=== PATIENT | male | born 1950 | race Caucasian/White ===

== ENCOUNTER → 2017-08-04 | Outpatient (CLI) | payer MEDICARE, OTHER ==
[~2017-08-04] MED LIST: ADENOSINE 72 MG in GIVE UN-DILUTED 0 ML IV ONE; ADENOSINE 90 MG/30 ML INJ IV ONE; ASPI81CH43 PO; CAR3125T PO; Captopril PO; FAM20T PO; METF500T PO; SIMV20TA90 PO; SPIR25TA88 PO; TICA90TA PO
[2017-08-04 16:54] LABS: Basophils # (auto) 0 uL; Basophils % (auto) 0.9 % (0.0-2.0); Eosinophils # (auto) 0.1 uL; Eosinophils % (auto) 1.2 % (0.0-7.0); Hematocrit 43.4 % (41.0-53.0); Hemoglobin 14.4 g/dL (13.5-17.5); Lymphocytes # (auto) 0.8 uL; Lymphocytes % (auto) 15.1 % (10.0-50.0); Mean Corpuscular Hemoglobin 30.3 pg (28.0-32.0); Mean Corpuscular Hgb Conc. 33.3 g/dL (32.0-36.0); Monocytes # (auto) 0.4 uL; Monocytes % (auto) 6.9 % (0.0-12.0); Neutrophils # (auto) 3.8 uL; Neutrophils % (auto) 75.9 % (37.0-80.0); Nucleated Red Blood Cells % 0.7 %; Platelet Count (auto) 196 10^3/uL (140-450); Red Blood Cells 4.77 10^6/uL (4.5-5.90); Red Cell Distribution Width 14.4 % (11.8-14.3)
[2017-08-04 17:07] LABS: Urine Blood Negative /uL (Negative); Urine Specific Gravity 1.019 (1.001-1.035)
[2017-08-04 17:13] LABS: Albumin 3.7 g/dL (3.4-5.0); BUN/Creatinine Ratio 13.4; Bilirubin, Total 0.6 mg/dL (0.2-1.0); Potassium 4.1 mmol/L (3.5-5.1); Total Protein 7.4 g/dL (6.4-8.2)
[2017-08-04 17:15] LABS: Free T4 (Free Thyroxine) 1.23 ng/dL (0.89-1.76); Prostate Specific Antigen 1.62 ng/mL (0.0-4.0)
== END | disposition home or self-care (01) ==
LOC: Rad HDHVI 08:42
PROVIDERS: ATTEND Internal Medicine Cardiovascular Disease
DX: I25.5 Ischemic cardiomyopathy (principal); I11.0 Hypertensive heart disease with heart failure; I50.23 Acute on chronic systolic (congestive) heart failure; E78.00 Pure hypercholesterolemia, unspecified; D64.9 Anemia, unspecified; E03.9 Hypothyroidism, unspecified; E55.9 Vitamin D deficiency, unspecified; R53.81 Other malaise; R97.20 Elevated prostate specific antigen [PSA]; D51.9 Vitamin B12 deficiency anemia, unspecified; N39.0 Urinary tract infection, site not specified; I34.0 Nonrheumatic mitral (valve) insufficiency; E11.40 Type 2 diabetes mellitus with diabetic neuropathy, unspecified
CPT/HCPCS: 36415; 78452; 80053; 80061; 81003; 82306; 82607; 83036; 84153; 84402; 84403; 84439; 84443; 85025; 93005; 93306; 96374; 96375; A9500; J0153

== ENCOUNTER 2017-08-16 07:45 | Emergency (ER) | payer OTHER ==
[~2017-08-16] VITALS: Ht 182.9 cm; Wt 89.8 kg
[~2017-08-16 07:45] MED LIST changes: -ADENOSINE 72 MG in GIVE UN-DILUTED 0 ML IV ONE; -ADENOSINE 90 MG/30 ML INJ IV ONE
[2017-08-16 08:39] LABS: Basophils # (auto) 0 uL; Basophils % (auto) 0.6 % (0.0-2.0); Eosinophils # (auto) 0 uL; Eosinophils % (auto) 0.8 % (0.0-7.0); Hematocrit 41.5 % (41.0-53.0); Hemoglobin 13.6 g/dL (13.5-17.5); Lymphocytes # (auto) 0.5 uL; Lymphocytes % (auto) 8.2 % (10.0-50.0); Mean Corpuscular Hemoglobin 30.1 pg (28.0-32.0); Mean Corpuscular Hgb Conc. 32.7 g/dL (32.0-36.0); Mean Corpuscular Volume 91.8 fL (80.0-100.0); Monocytes # (auto) 0.4 uL; Neutrophils # (auto) 4.7 uL; Neutrophils % (auto) 83.4 % (37.0-80.0); Platelet Count (auto) 177 10^3/uL (140-450); Red Blood Cells 4.52 10^6/uL (4.5-5.90); Red Cell Distribution Width 13.9 % (11.8-14.3); White Blood Cell 5.7 10^3/uL (4.4-10.8)
[2017-08-16 08:59] LABS: Albumin 3.5 g/dL (3.4-5.0); BUN/Creatinine Ratio 10.3; Calcium 8.3 mg/dL (8.5-10.1); Potassium 4.7 mmol/L (3.5-5.1)
[2017-08-16 09:04] LABS: Bilirubin, Total 0.7 mg/dL (0.2-1.0); Total Protein 6.9 g/dL (6.4-8.2)
[2017-08-16 11:16] VITALS: BP 134/87
== END 2017-08-16 12:21 | disposition home or self-care (01) ==
LOC: ER 07:45
DX: E11.9 Type 2 diabetes mellitus without complications (principal); I10 Essential (primary) hypertension; K21.9 Gastro-esophageal reflux disease without esophagitis; E78.5 Hyperlipidemia, unspecified; Z95.810 Presence of automatic (implantable) cardiac defibrillator
CPT/HCPCS: 36415; 71046; 80053; 84484; 85025; 93005

== ENCOUNTER → 2019-10-29 | Outpatient (CLI) | payer OTHER | END | disposition home or self-care (01) | LOC: LAB 11:46 | PROVIDERS: ATTEND Internal Medicine Cardiovascular Disease | DX: E29.1 Testicular hypofunction (principal); R53.83 Other fatigue | CPT/HCPCS: 36415; 84403 ==

== ENCOUNTER → 2019-12-01 | Outpatient (CLI) | payer OTHER ==
[~2019-12-01] MED LIST changes: -FAM20T PO; +FAMO20TA10 PO
== END | disposition home or self-care (01) ==
LOC: Rad HDHVI 13:59
PROVIDERS: ATTEND Internal Medicine Cardiovascular Disease
DX: E11.319 Type 2 diabetes mellitus with unspecified diabetic retinopathy without macular edema (principal); I25.10 Atherosclerotic heart disease of native coronary artery without angina pectoris; Z95.0 Presence of cardiac pacemaker
CPT/HCPCS: 93306

== ENCOUNTER → 2019-12-16 | Outpatient (CLI) | payer OTHER ==
[~2019-12-16] VITALS: Ht 182.9 cm; Wt 83.5 kg
[~2019-12-16] MED LIST changes: +ADENOSINE 70 MG in GIVE UN-DILUTED 0 ML IV ONE; +ADENOSINE 90 MG/30 ML INJ IV ONE; +FAM20T PO; -FAMO20TA10 PO
== END | disposition home or self-care (01) ==
LOC: Rad HDHVI 09:01
PROVIDERS: ATTEND Internal Medicine Cardiovascular Disease
DX: I10 Essential (primary) hypertension (principal); E11.9 Type 2 diabetes mellitus without complications; Z95.0 Presence of cardiac pacemaker; Z95.1 Presence of aortocoronary bypass graft
CPT/HCPCS: 78452; 93005; 96374; 96375; A9500; J0153

== ENCOUNTER 2021-07-27 09:53 | Inpatient (IN) | payer OTHER ==
[~2021-07-27] VITALS: Ht 182.9 cm; Wt 85.8 kg
[~2021-07-27 09:53] MED LIST changes: -ADENOSINE 70 MG in GIVE UN-DILUTED 0 ML IV ONE; -ADENOSINE 90 MG/30 ML INJ IV ONE; -FAM20T PO; +FAMO20TA10 PO; +SIMV20TA2 PO; -SIMV20TA90 PO; +SPIR25TA PO; -SPIR25TA88 PO
[2021-07-27 10:35] LABS: Basophils # (auto) 0 10 ^3/uL (0-0.2); Eosinophils # (auto) 0 10 ^3/uL (0-0.8); Hematocrit 35.3 % (41.0-53.0); Hemoglobin 11.5 g/dL (13.5-17.5); Lymphocytes # (auto) 0.3 10 ^3/uL (0.4-5.4); Lymphocytes % (auto) 1.6 % (10.0-50.0); Mean Corpuscular Hemoglobin 28.5 pg (28.0-32.0); Mean Corpuscular Hgb Conc. 32.4 g/dL (32.0-36.0); Mean Corpuscular Volume 87.9 fL (80.0-100.0); Monocytes # (auto) 1.9 10 ^3/uL (0-1.3); Monocytes % (auto) 9.6 % (0.0-12.0); Neutrophils # (auto) 18.1 10 ^3/uL (1.6-8.6); Neutrophils % (auto) 88.8 % (37.0-80.0); Red Blood Cells 4.02 10^6/uL (4.5-5.90); Red Cell Distribution Width 14.2 % (11.8-14.3); White Blood Cell 20.4 10^3/uL (4.4-10.8)
[2021-07-27 10:47] LABS: Albumin 2.5 g/dL (3.4-5.0); Calcium 8.5 mg/dL (8.5-10.1); Potassium 4.6 mmol/L (3.5-5.1)
[2021-07-27 10:49] LABS: Total Protein 7.4 g/dL (6.4-8.2)
[2021-07-27 11:06] LABS: Lactic Acid w/Reflex 2.2 mmol/L (0.4-2.0)
[2021-07-27] MEDS ORDERED: CLINDAMYCIN 600MG IV 50 ML IV ONE (13:45)
[2021-07-27] MEDS ORDERED: cefTRIAXone 1GM/50ML D5W 50 ML IV ONE (13:45)
[2021-07-27] MEDS ORDERED: SODIUM CHLORIDE 0.9% 1,000 ML IV ONE ×2 (13:45)
[2021-07-27] MEDS ORDERED: NITROGLYCERIN 0.4 MG SL TAB SL PRN (14:30)
[2021-07-27] MEDS ORDERED: MORPHINE SULFATE INJECTION 2 MG/ML SYRG IV PRN (14:30)
[2021-07-27] MEDS: SODIUM CHLORIDE 0.9% 1,000 ML IV SCH (17:07)
[2021-07-27 21:56] VITALS: BP 106/57
[2021-07-27 21:59] VITALS: BP 106/57
[2021-07-27] MEDS ORDERED: BRIM0.2S17 EACHEYE (22:16)
[2021-07-27] MEDS ORDERED: ASPI-543 PO (22:16)
[2021-07-27] MEDS ORDERED: CARV3.1240 PO (22:16)
[2021-07-27] MEDS ORDERED: DAPA1TAB4 PO (22:16)
[2021-07-27] MEDS ORDERED: METF-370 PO (22:16)
[2021-07-27] MEDS ORDERED: RAMI5CAP40 PO (22:16)
[2021-07-27] MEDS: ACETAMINOPHEN 325 MG TAB PO PRN (23:34)
[2021-07-28 05:09] VITALS: BP 108/51
[2021-07-28] MEDS: ACETAMINOPHEN 325 MG TAB PO PRN ×5 (05:11→18:28)
[2021-07-28 06:38] LABS: Basophils # (auto) 0 10 ^3/uL (0-0.2); Basophils % (auto) 0.2 % (0.0-2.0); Eosinophils # (auto) 0 10 ^3/uL (0-0.8); Hematocrit 30.7 % (41.0-53.0); Hemoglobin 10.2 g/dL (13.5-17.5); Lymphocytes # (auto) 0.2 10 ^3/uL (0.4-5.4); Lymphocytes % (auto) 1.5 % (10.0-50.0); Mean Corpuscular Hemoglobin 28.8 pg (28.0-32.0); Mean Corpuscular Hgb Conc. 33.1 g/dL (32.0-36.0); Mean Corpuscular Volume 86.8 fL (80.0-100.0); Monocytes # (auto) 1.5 10 ^3/uL (0-1.3); Monocytes % (auto) 9.1 % (0.0-12.0); Neutrophils # (auto) 14.8 10 ^3/uL (1.6-8.6); Neutrophils % (auto) 89.2 % (37.0-80.0); Red Blood Cells 3.54 10^6/uL (4.5-5.90); White Blood Cell 16.6 10^3/uL (4.4-10.8)
[2021-07-28 07:00] LABS: Potassium 4.2 mmol/L (3.5-5.1)
[2021-07-28 07:08] LABS: Albumin 1.9 g/dL (3.4-5.0); BUN/Creatinine Ratio 34.7; Bilirubin, Total 0.8 mg/dL (0.2-1.0); Total Protein 5.9 g/dL (6.4-8.2)
[2021-07-28] MEDS: SODIUM CHLORIDE 0.9% 1,000 ML IV SCH (08:03)
[2021-07-28 09:00] VITALS: BP 95/54
[2021-07-28] MEDS: ENOXAPARIN SOD 40 MG/0.4 ML SYRINGE SC SCH (09:23)
[2021-07-28 12:59] VITALS: BP 110/62
[2021-07-28] MEDS ORDERED: PIPERACILLIN-TAZOB 3.375GM 100 ML IV ONE (13:30)
[2021-07-28] MEDS ORDERED: VANCOMYCIN PER PHARMACY 0 MG IV SCH (13:30)
[2021-07-28] MEDS ORDERED: PIPERACILLIN-TAZOB 3.375GM 100 ML IV SCH ×2 (14:00→22:00)
[2021-07-28] MEDS ORDERED: VANCOMYCIN 1GM/250ML 250 ML IV ONE (14:30)
[2021-07-28 16:36] VITALS: BP 111/50
[2021-07-28] MEDS: PIPERACILLIN-TAZOB 3.375GM 100 ML IV SCH (18:09)
[2021-07-28] MEDS ORDERED: DEXTROSE (50%) 50ML SYRG IV PRN (20:15)
[2021-07-28] MEDS: ACCU-CHEK COMFORT CURVE STRIP VI SCH (22:24)
[2021-07-28] MEDS: InsuLIN REG 1unit/0.01ml Soln (100units/ml) SC SCH (22:30)
[2021-07-29] MEDS: SODIUM CHLORIDE 0.9% 1,000 ML IV SCH ×2 (00:14→16:30)
[2021-07-29] MEDS: PIPERACILLIN-TAZOB 3.375GM 100 ML IV SCH ×3 (00:43→17:00)
[2021-07-29 04:00] VITALS: BP 96/66
[2021-07-29] MEDS: VANCOMYCIN 1GM/250ML 250 ML IV SCH ×2 (04:18→17:00)
[2021-07-29] MEDS: ACCU-CHEK COMFORT CURVE STRIP VI SCH ×4 (06:06→22:00)
[2021-07-29] MEDS: InsuLIN REG 1unit/0.01ml Soln (100units/ml) SC SCH ×4 (06:07→22:00)
[2021-07-29 09:00] VITALS: BP_SYST 95; BP_SYST 99; BP_DIAS 59; BP_DIAS 65
[2021-07-29] MEDS: ENOXAPARIN SOD 40 MG/0.4 ML SYRINGE SC SCH (09:57)
[2021-07-29] MEDS: DAKINS QUARTER STR 0.125% (NaHypochlorite) 473 ML TOPICAL SOL TOP SCH (09:58)
[2021-07-29 13:42] VITALS: BP 114/63
[2021-07-29 17:00] VITALS: BP 122/48
[2021-07-30] MEDS: PIPERACILLIN-TAZOB 3.375GM 100 ML IV SCH ×3 (01:04→17:00)
[2021-07-30] MEDS: VANCOMYCIN 1GM/250ML 250 ML IV SCH ×2 (05:57→20:20)
[2021-07-30 06:26] LABS: BUN/Creatinine Ratio 34.3; Calcium 7.8 mg/dL (8.5-10.1); Potassium 3.8 mmol/L (3.5-5.1)
[2021-07-30] MEDS: InsuLIN REG 1unit/0.01ml Soln (100units/ml) SC SCH ×3 (06:33→17:00)
[2021-07-30] MEDS: ACCU-CHEK COMFORT CURVE STRIP VI SCH ×3 (06:34→17:00)
[2021-07-30 09:00] VITALS: BP 105/58
[2021-07-30] MEDS: ENOXAPARIN SOD 40 MG/0.4 ML SYRINGE SC SCH (10:04)
[2021-07-30] MEDS: SODIUM CHLORIDE 0.9% 1,000 ML IV SCH (10:04)
[2021-07-30] MEDS: DAKINS QUARTER STR 0.125% (NaHypochlorite) 473 ML TOPICAL SOL TOP SCH (11:52)
[2021-07-30 18:08] VITALS: BP 115/56
[2021-07-30 22:00] VITALS: BP 105/61
[2021-07-31] MEDS: InsuLIN REG 1unit/0.01ml Soln (100units/ml) SC SCH ×6 (00:12→21:24)
[2021-07-31] MEDS: VANCOMYCIN 1GM/250ML 250 ML IV SCH ×2 (00:20→21:22)
[2021-07-31] MEDS: PIPERACILLIN-TAZOB 3.375GM 100 ML IV SCH ×3 (02:11→17:22)
[2021-07-31] MEDS: ACCU-CHEK COMFORT CURVE STRIP VI SCH ×5 (02:15→21:25)
[2021-07-31 05:24] LABS: Basophils # (auto) 0 10 ^3/uL (0-0.2); Basophils % (auto) 0.2 % (0.0-2.0); Eosinophils # (auto) 0 10 ^3/uL (0-0.8); Eosinophils % (auto) 0.3 % (0.0-7.0); Hemoglobin 10.3 g/dL (13.5-17.5); Lymphocytes # (auto) 0.4 10 ^3/uL (0.4-5.4); Lymphocytes % (auto) 3.1 % (10.0-50.0); Mean Corpuscular Hemoglobin 28.6 pg (28.0-32.0); Mean Corpuscular Hgb Conc. 33.1 g/dL (32.0-36.0); Mean Corpuscular Volume 86.5 fL (80.0-100.0); Monocytes # (auto) 1.1 10 ^3/uL (0-1.3); Monocytes % (auto) 8.4 % (0.0-12.0); Neutrophils # (auto) 11.1 10 ^3/uL (1.6-8.6); Nucleated Red Blood Cells % 0.1 %; Red Blood Cells 3.59 10^6/uL (4.5-5.90); Red Cell Distribution Width 13.9 % (11.8-14.3); White Blood Cell 12.7 10^3/uL (4.4-10.8)
[2021-07-31 05:36] LABS: INR 1.33 (0.9-1.15)
[2021-07-31 05:38] LABS: BUN/Creatinine Ratio 31.6; Calcium 8.1 mg/dL (8.5-10.1); Potassium 3.7 mmol/L (3.5-5.1)
[2021-07-31 06:00] VITALS: BP 102/59
[2021-07-31] MEDS ORDERED: POVIDONE IODINE 10 % TOPICAL OINT 30GM TOP ONE (07:53)
[2021-07-31 08:00] VITALS: BP 110/60
[2021-07-31] MEDS: DAKINS QUARTER STR 0.125% (NaHypochlorite) 473 ML TOPICAL SOL TOP SCH (10:00)
[2021-07-31] MEDS: ENOXAPARIN SOD 40 MG/0.4 ML SYRINGE SC SCH (10:00)
[2021-07-31] MEDS ORDERED: IODIXANOL 320MG/ML 100ML BTL IV ONE (11:35)
[2021-07-31] MEDS ORDERED: LIDOCAINE 2%HCL (LOCAL ANESTH.) INJ 20ML MDV ONE (11:35)
[2021-07-31] MEDS ORDERED: ANGIOMAX 250 MG VIAL IV ONE (11:52)
[2021-07-31] MEDS ORDERED: fentaNYL CITRATE 100 MCG/2 ML VL ONE (11:52)
[2021-07-31] MEDS ORDERED: SODIUM CHL 0.9% 0 ML ONE (11:53)
[2021-07-31] MEDS ORDERED: MIDAZOLAM HCL 2MG/2ML 2ml VIAL (1mg/ml) ONE (11:53)
[2021-07-31 12:00] VITALS: BP 98/88
[2021-07-31 16:00] VITALS: BP 100/55
[2021-07-31 22:00] VITALS: BP 115/58
[2021-08-01] MEDS: PIPERACILLIN-TAZOB 3.375GM 100 ML IV SCH ×3 (00:36→17:00)
[2021-08-01 05:00] VITALS: BP 146/74
[2021-08-01] MEDS: InsuLIN REG 1unit/0.01ml Soln (100units/ml) SC SCH ×4 (07:03→22:49)
[2021-08-01] MEDS: ACCU-CHEK COMFORT CURVE STRIP VI SCH ×4 (07:14→22:50)
[2021-08-01] MEDS ORDERED: ROPIVACAINE 0.5% (5MG/ML) 20ML AMPULE IJ ONE (08:13)
[2021-08-01] MEDS ORDERED: ceFAZolin 1GM VL ONE (08:13)
[2021-08-01] MEDS ORDERED: ceFAZolin 1GM/50ML 100 ML IV ONE (08:19)
[2021-08-01] MEDS ORDERED: HYDROmorphone HCL 2 MG/ML VL IV PRN (08:30)
[2021-08-01] MEDS ORDERED: METOCLOPRAMIDE HCL 5MG/ml INJ 2ml VIAL IV PRN (08:30)
[2021-08-01] MEDS ORDERED: ACCU-CHEK COMFORT CURVE STRIP VI ONE (08:30)
[2021-08-01] MEDS ORDERED: MORPHINE SULFATE 4 MG/ML SYR/VIAL IV PRN (08:30)
[2021-08-01] MEDS ORDERED: MIDAZOLAM HCL 2MG/2ML 2ml VIAL (1mg/ml) ONE (08:35)
[2021-08-01] MEDS ORDERED: PROPOFOL 10 MG/ML 20 ML IV ONE (08:35)
[2021-08-01] MEDS ORDERED: SODIUM CHLORIDE LOCK 10 ML ONE (08:35)
[2021-08-01] MEDS ORDERED: ONDANSETRON HCL 4 MG/2 ML VIAL ONE (08:35)
[2021-08-01] MEDS ORDERED: fentaNYL CITRATE 100 MCG/2 ML VL ONE (08:35)
[2021-08-01 09:00] VITALS: BP 116/57
[2021-08-01] MEDS: DAKINS QUARTER STR 0.125% (NaHypochlorite) 473 ML TOPICAL SOL TOP SCH (10:00)
[2021-08-01] MEDS: ENOXAPARIN SOD 40 MG/0.4 ML SYRINGE SC SCH (10:00)
[2021-08-01 10:20] VITALS: BP 95/50
[2021-08-01] MEDS: VANCOMYCIN 1GM/250ML 250 ML IV SCH ×2 (12:30→23:00)
[2021-08-01 13:00] VITALS: BP 103/55
[2021-08-01 17:09] VITALS: BP 111/58
[2021-08-01] MEDS: ACETAMINOPHEN 325 MG TAB PO PRN ×2 (19:13→22:47)
[2021-08-01 22:00] VITALS: BP 101/57
[2021-08-02] MEDS: PIPERACILLIN-TAZOB 3.375GM 100 ML IV SCH ×2 (01:21→09:00)
[2021-08-02] MEDS: VANCOMYCIN 1GM/250ML 250 ML IV SCH ×2 (01:21→12:00)
[2021-08-02 05:00] VITALS: BP 110/57
[2021-08-02 07:16] LABS: Basophils # (auto) 0 10 ^3/uL (0-0.2); Basophils % (auto) 0.3 % (0.0-2.0); Eosinophils # (auto) 0.1 10 ^3/uL (0-0.8); Eosinophils % (auto) 0.8 % (0.0-7.0); Hematocrit 26.6 % (41.0-53.0); Hemoglobin 8.8 g/dL (13.5-17.5); Lymphocytes # (auto) 0.5 10 ^3/uL (0.4-5.4); Lymphocytes % (auto) 4.4 % (10.0-50.0); Mean Corpuscular Hgb Conc. 33.1 g/dL (32.0-36.0); Mean Corpuscular Volume 87.4 fL (80.0-100.0); Monocytes # (auto) 1.2 10 ^3/uL (0-1.3); Monocytes % (auto) 10.1 % (0.0-12.0); Neutrophils # (auto) 9.8 10 ^3/uL (1.6-8.6); Neutrophils % (auto) 84.4 % (37.0-80.0); Nucleated Red Blood Cells % 0.1 %; Red Blood Cells 3.04 10^6/uL (4.5-5.90); Red Cell Distribution Width 14.1 % (11.8-14.3); White Blood Cell 11.6 10^3/uL (4.4-10.8)
[2021-08-02 07:22] LABS: Calcium 6.9 mg/dL (8.5-10.1); Potassium 3.6 mmol/L (3.5-5.1)
[2021-08-02 07:24] LABS: BUN/Creatinine Ratio 22.4
[2021-08-02] MEDS: InsuLIN REG 1unit/0.01ml Soln (100units/ml) SC SCH ×4 (07:25→22:15)
[2021-08-02] MEDS: ACCU-CHEK COMFORT CURVE STRIP VI SCH ×4 (07:26→22:15)
[2021-08-02 09:00] VITALS: BP 100/52
[2021-08-02] MEDS: DAKINS QUARTER STR 0.125% (NaHypochlorite) 473 ML TOPICAL SOL TOP SCH (10:00)
[2021-08-02] MEDS: ENOXAPARIN SOD 40 MG/0.4 ML SYRINGE SC SCH (10:00)
[2021-08-02 12:47] VITALS: BP 97/52
[2021-08-02] MEDS: ACETAMINOPHEN 325 MG TAB PO PRN (13:00)
[2021-08-02 16:41] VITALS: BP 98/53
[2021-08-02] MEDS: NAFCILLIN SOD 2GM 2 GM in SODIUM CHL 0.9% 100 ML IV SCH ×2 (18:00→22:13)
[2021-08-02 22:00] VITALS: BP 98/57
[2021-08-03] MEDS: NAFCILLIN SOD 2GM 2 GM in SODIUM CHL 0.9% 100 ML IV SCH ×2 (01:53→06:27)
[2021-08-03 05:00] VITALS: BP 99/38
[2021-08-03 05:06] LABS: INR 1.36 (0.9-1.15)
[2021-08-03] MEDS: InsuLIN REG 1unit/0.01ml Soln (100units/ml) SC SCH ×4 (06:28→21:42)
[2021-08-03] MEDS: ACCU-CHEK COMFORT CURVE STRIP VI SCH ×4 (06:33→21:42)
[2021-08-03] MEDS: ENOXAPARIN SOD 40 MG/0.4 ML SYRINGE SC SCH ×2 (08:36→10:00)
[2021-08-03 09:00] VITALS: BP 109/57
[2021-08-03] MEDS ORDERED: ceFAZolin 1GM VL ONE (09:28)
[2021-08-03] MEDS ORDERED: ROPIVACAINE 0.5% (5MG/ML) 20ML AMPULE IJ ONE (09:28)
[2021-08-03] MEDS: DAKINS QUARTER STR 0.125% (NaHypochlorite) 473 ML TOPICAL SOL TOP SCH (10:00)
[2021-08-03] MEDS ORDERED: SODIUM CHLORIDE 0.9% 1,000 ML IV ONE (12:15)
[2021-08-03] MEDS ORDERED: ALBUMIN 25% 50 ML IV ONE (12:15)
[2021-08-03 13:00] VITALS: BP 94/49
[2021-08-03] MEDS ORDERED: ceFAZolin 1GM/50ML 100 ML IV ONE (13:31)
[2021-08-03] MEDS ORDERED: ceFAZolin 1GM/50ML 50 ML IV ONE (13:38)
[2021-08-03] MEDS ORDERED: fentaNYL CITRATE 100 MCG/2 ML VL ONE (13:53)
[2021-08-03] MEDS ORDERED: HYDROmorphone HCL 2 MG/ML VL ONE (15:06)
[2021-08-03] MEDS: HYDROmorphone HCL 2 MG/ML VL IV PRN ×5 (15:06→15:49)
[2021-08-03] MEDS ORDERED: LABETALOL HCL 5 MG/ML 4ML SYRINGE IV PRN (15:15)
[2021-08-03] MEDS ORDERED: ePHEDrine SULFATE 50 MG/ML AMP IV PRN (15:15)
[2021-08-03] MEDS ORDERED: fentaNYL CITRATE 100 MCG/2 ML VL IV PRN (15:15)
[2021-08-03] MEDS ORDERED: HYDROmorphone HCL 2 MG/ML VL IV PRN (15:15)
[2021-08-03] MEDS ORDERED: MORPHINE SULFATE INJECTION 2 MG/ML SYRG IV PRN (15:15)
[2021-08-03] MEDS ORDERED: ONDANSETRON HCL 4 MG/2 ML VIAL IV PRN (15:15)
[2021-08-03] MEDS ORDERED: MIDAZOLAM HCL 2MG/2ML 2ml VIAL (1mg/ml) IV PRN (15:15)
[2021-08-03] MEDS: ACETAMINOPHEN 325 MG TAB PO PRN ×2 (15:30→21:43)
[2021-08-03 17:00] VITALS: BP 98/58
[2021-08-03] MEDS: AMPICILLIN & SULBACTAM SODIUM 3 GM in SODIUM CHL 0.9% 100 ML IV SCH ×3 (17:45→23:34)
[2021-08-03 19:00] VITALS: BP 95/58
[2021-08-03 22:00] VITALS: BP 95/44
[2021-08-04 05:00] VITALS: BP 94/55
[2021-08-04] MEDS: AMPICILLIN & SULBACTAM SODIUM 3 GM in SODIUM CHL 0.9% 100 ML IV SCH ×4 (05:46→23:59)
[2021-08-04] MEDS: ACETAMINOPHEN 325 MG TAB PO PRN ×3 (05:47→17:16)
[2021-08-04] MEDS: InsuLIN REG 1unit/0.01ml Soln (100units/ml) SC SCH ×4 (06:43→22:00)
[2021-08-04] MEDS: ACCU-CHEK COMFORT CURVE STRIP VI SCH ×4 (06:48→23:45)
[2021-08-04 09:00] VITALS: BP 105/61
[2021-08-04] MEDS: DAKINS QUARTER STR 0.125% (NaHypochlorite) 473 ML TOPICAL SOL TOP SCH (10:00)
[2021-08-04 13:00] VITALS: BP 108/60
[2021-08-04 17:22] VITALS: BP 113/64
[2021-08-04 22:00] VITALS: BP 97/51
[2021-08-05 05:00] VITALS: BP 107/55
[2021-08-05] MEDS: ACCU-CHEK COMFORT CURVE STRIP VI SCH ×4 (07:00→22:20)
[2021-08-05] MEDS: InsuLIN REG 1unit/0.01ml Soln (100units/ml) SC SCH ×4 (07:10→22:20)
[2021-08-05] MEDS: AMPICILLIN & SULBACTAM SODIUM 3 GM in SODIUM CHL 0.9% 100 ML IV SCH ×3 (07:45→17:45)
[2021-08-05] MEDS: DAKINS QUARTER STR 0.125% (NaHypochlorite) 473 ML TOPICAL SOL TOP SCH (10:00)
[2021-08-05] MEDS: ENOXAPARIN SOD 40 MG/0.4 ML SYRINGE SC SCH (10:00)
[2021-08-05 17:00] VITALS: BP 131/75
[2021-08-05 18:40] LABS: Basophils # (auto) 0 10 ^3/uL (0-0.2); Basophils % (auto) 0.4 % (0.0-2.0); Eosinophils # (auto) 0.1 10 ^3/uL (0-0.8); Monocytes # (auto) 0.9 10 ^3/uL (0-1.3); Neutrophils # (auto) 9.8 10 ^3/uL (1.6-8.6); White Blood Cell 11.4 10^3/uL (4.4-10.8)
[2021-08-05 18:41] LABS: Eosinophils % (auto) 0.7 % (0.0-7.0); Hematocrit 31.1 % (41.0-53.0); Hemoglobin 10.2 g/dL (13.5-17.5); Lymphocytes # (auto) 0.6 10 ^3/uL (0.4-5.4); Lymphocytes % (auto) 5.1 % (10.0-50.0); Mean Corpuscular Hemoglobin 28.7 pg (28.0-32.0); Mean Corpuscular Hgb Conc. 32.9 g/dL (32.0-36.0); Mean Corpuscular Volume 87.2 fL (80.0-100.0); Monocytes % (auto) 7.8 % (0.0-12.0); Nucleated Red Blood Cells % 0.1 %; Red Blood Cells 3.56 10^6/uL (4.5-5.90); Red Cell Distribution Width 14.1 % (11.8-14.3)
[2021-08-05 18:51] LABS: BUN/Creatinine Ratio 17.8; Calcium 7.8 mg/dL (8.5-10.1); Potassium 4.2 mmol/L (3.5-5.1)
[2021-08-05] MEDS: ACETAMINOPHEN 325 MG TAB PO PRN (20:11)
[2021-08-05 22:00] VITALS: BP 107/54
[2021-08-06] MEDS: AMPICILLIN & SULBACTAM SODIUM 3 GM in SODIUM CHL 0.9% 100 ML IV SCH ×4 (00:24→18:20)
[2021-08-06 05:15] VITALS: BP 127/57
[2021-08-06] MEDS: InsuLIN REG 1unit/0.01ml Soln (100units/ml) SC SCH ×4 (06:14→22:00)
[2021-08-06] MEDS: ACCU-CHEK COMFORT CURVE STRIP VI SCH ×4 (06:15→23:21)
[2021-08-06 12:00] VITALS: BP 146/82
[2021-08-06 12:16] LABS: INR 1.34 (0.9-1.15); Partial Thromboplastin Time 34.4 sec (23.6-33.0)
[2021-08-06] MEDS: ENOXAPARIN SOD 40 MG/0.4 ML SYRINGE SC SCH (12:27)
[2021-08-06] MEDS: ACETAMINOPHEN 325 MG TAB PO PRN ×2 (13:06→18:55)
[2021-08-06] MEDS: SODIUM CHLORIDE 0.9% 1,000 ML IV SCH (15:40)
[2021-08-06 17:00] VITALS: BP 126/82
[2021-08-06 20:00] VITALS: BP 121/72
[2021-08-07] MEDS: SODIUM CHLORIDE 0.9% 1,000 ML IV SCH ×2 (01:30→17:05)
[2021-08-07] MEDS: InsuLIN REG 1unit/0.01ml Soln (100units/ml) SC SCH ×4 (07:08→23:33)
[2021-08-07 07:28] LABS: Eosinophils # (auto) 0.1 10 ^3/uL (0-0.8)
[2021-08-07] MEDS: ACCU-CHEK COMFORT CURVE STRIP VI SCH ×3 (07:31→18:50)
[2021-08-07 07:32] LABS: Basophils # (auto) 0 10 ^3/uL (0-0.2); Basophils % (auto) 0.3 % (0.0-2.0); Hematocrit 34.4 % (41.0-53.0); Lymphocytes # (auto) 0.8 10 ^3/uL (0.4-5.4); Lymphocytes % (auto) 6.4 % (10.0-50.0); Mean Corpuscular Hemoglobin 28.8 pg (28.0-32.0); Mean Corpuscular Hgb Conc. 31.9 g/dL (32.0-36.0); Mean Corpuscular Volume 90.3 fL (80.0-100.0); Monocytes # (auto) 0.9 10 ^3/uL (0-1.3); Monocytes % (auto) 7.5 % (0.0-12.0); Neutrophils % (auto) 84.8 % (37.0-80.0); Nucleated Red Blood Cells % 0.2 %; Red Cell Distribution Width 14.8 % (11.8-14.3); White Blood Cell 11.8 10^3/uL (4.4-10.8)
[2021-08-07] MEDS: AMPICILLIN & SULBACTAM SODIUM 3 GM in SODIUM CHL 0.9% 100 ML IV SCH ×5 (07:32→23:28)
[2021-08-07 09:00] VITALS: BP 128/71
[2021-08-07 09:21] LABS: BUN/Creatinine Ratio 19.1; Calcium 7.7 mg/dL (8.5-10.1); Potassium 4.8 mmol/L (3.5-5.1)
[2021-08-07] MEDS ORDERED: POVIDONE IODINE 10 % TOPICAL OINT 30GM TOP ONE (09:33)
[2021-08-07] MEDS ORDERED: BUPIVACAINE 0.5% P/F INJ 10 ML VIAL ONE (12:00)
[2021-08-07] MEDS ORDERED: fentaNYL CITRATE 100 MCG/2 ML VL ONE (12:04)
[2021-08-07] MEDS ORDERED: PROPOFOL 10 MG/ML 20 ML IV ONE (12:04)
[2021-08-07] MEDS ORDERED: DexAMETHasone SOD PHOS 10MG/1ML VIAL INJ ONE (12:04)
[2021-08-07] MEDS ORDERED: MIDAZOLAM HCL 2MG/2ML 2ml VIAL (1mg/ml) ONE ×2 (12:04)
[2021-08-07 13:00] VITALS: BP 128/68
[2021-08-07] MEDS ORDERED: LABETALOL HCL 5 MG/ML 4ML SYRINGE IV PRN (13:00)
[2021-08-07] MEDS ORDERED: ONDANSETRON HCL 4 MG/2 ML VIAL IV PRN (13:00)
[2021-08-07] MEDS ORDERED: HYDROmorphone HCL 2 MG/ML VL IV PRN (13:00)
[2021-08-07] MEDS ORDERED: MORPHINE SULFATE 4 MG/ML SYR/VIAL IV PRN (13:00)
[2021-08-07] MEDS ORDERED: hydrALAZINE HCL 20 MG/ML VL IV PRN (13:00)
[2021-08-07] MEDS ORDERED: ePHEDrine SULFATE 50 MG/ML AMP IV PRN (13:00)
[2021-08-07] MEDS ORDERED: MIDAZOLAM HCL 2MG/2ML 2ml VIAL (1mg/ml) IV PRN (13:00)
[2021-08-07] MEDS ORDERED: ACCU-CHEK COMFORT CURVE STRIP VI ONE (13:00)
[2021-08-07] MEDS: ACETAMINOPHEN 325 MG TAB PO PRN (16:12)
[2021-08-07] MEDS: HYDROcodone-ACET 7.5/325MG TAB PO PRN (21:59)
[2021-08-08] MEDS: ACCU-CHEK COMFORT CURVE STRIP VI SCH ×5 (03:01→21:58)
[2021-08-08] MEDS: ACETAMINOPHEN 325 MG TAB PO PRN ×3 (03:33→17:28)
[2021-08-08 06:10] LABS: Basophils # (auto) 0 10 ^3/uL (0-0.2); Basophils % (auto) 0.2 % (0.0-2.0); Eosinophils # (auto) 0 10 ^3/uL (0-0.8); Lymphocytes # (auto) 0.4 10 ^3/uL (0.4-5.4); Lymphocytes % (auto) 3.9 % (10.0-50.0); Monocytes # (auto) 0.7 10 ^3/uL (0-1.3); Monocytes % (auto) 7.1 % (0.0-12.0); Neutrophils # (auto) 8.1 10 ^3/uL (1.6-8.6); Neutrophils % (auto) 88.8 % (37.0-80.0); Red Blood Cells 3.35 10^6/uL (4.5-5.90); White Blood Cell 9.2 10^3/uL (4.4-10.8)
[2021-08-08 06:11] LABS: Hematocrit 29.4 % (41.0-53.0); Hemoglobin 9.6 g/dL (13.5-17.5); Mean Corpuscular Hemoglobin 28.5 pg (28.0-32.0); Mean Corpuscular Hgb Conc. 32.5 g/dL (32.0-36.0); Mean Corpuscular Volume 87.6 fL (80.0-100.0); Red Cell Distribution Width 14.4 % (11.8-14.3)
[2021-08-08] MEDS: AMPICILLIN & SULBACTAM SODIUM 3 GM in SODIUM CHL 0.9% 100 ML IV SCH ×4 (06:13→23:45)
[2021-08-08] MEDS: InsuLIN REG 1unit/0.01ml Soln (100units/ml) SC SCH ×4 (07:05→21:57)
[2021-08-08 09:00] VITALS: BP 131/74
[2021-08-08] MEDS: SODIUM CHLORIDE 0.9% 1,000 ML IV SCH (09:45)
[2021-08-08 13:00] VITALS: BP 93/43
[2021-08-08 22:00] VITALS: BP 119/68
[2021-08-08] MEDS: HYDROcodone-ACET 7.5/325MG TAB PO PRN (23:44)
[2021-08-09] MEDS: SODIUM CHLORIDE 0.9% 1,000 ML IV SCH ×2 (02:25→19:05)
[2021-08-09 05:00] VITALS: BP 134/79
[2021-08-09] MEDS: AMPICILLIN & SULBACTAM SODIUM 3 GM in SODIUM CHL 0.9% 100 ML IV SCH ×2 (05:40→11:45)
[2021-08-09 06:51] LABS: Basophils # (auto) 0.1 10 ^3/uL (0-0.2); Eosinophils # (auto) 0.1 10 ^3/uL (0-0.8); Eosinophils % (auto) 2.1 % (0.0-7.0); Hematocrit 30.2 % (41.0-53.0); Hemoglobin 9.8 g/dL (13.5-17.5); Lymphocytes # (auto) 0.6 10 ^3/uL (0.4-5.4); Lymphocytes % (auto) 11.4 % (10.0-50.0); Mean Corpuscular Hemoglobin 28.6 pg (28.0-32.0); Mean Corpuscular Hgb Conc. 32.5 g/dL (32.0-36.0); Mean Corpuscular Volume 88.1 fL (80.0-100.0); Monocytes # (auto) 0.6 10 ^3/uL (0-1.3); Monocytes % (auto) 11.6 % (0.0-12.0); Neutrophils # (auto) 4.1 10 ^3/uL (1.6-8.6); Neutrophils % (auto) 73.9 % (37.0-80.0); Nucleated Red Blood Cells % 0.1 %; Red Blood Cells 3.43 10^6/uL (4.5-5.90); Red Cell Distribution Width 14.5 % (11.8-14.3); White Blood Cell 5.6 10^3/uL (4.4-10.8)
[2021-08-09 07:06] LABS: Potassium 4.4 mmol/L (3.5-5.1)
[2021-08-09 07:10] LABS: BUN/Creatinine Ratio 19.7; Calcium 7.8 mg/dL (8.5-10.1)
[2021-08-09] MEDS: ACETAMINOPHEN 325 MG TAB PO PRN ×2 (07:36→14:23)
[2021-08-09 09:00] VITALS: BP 135/69
[2021-08-09] MEDS: ACCU-CHEK COMFORT CURVE STRIP VI SCH (11:30)
[2021-08-09] MEDS: InsuLIN REG 1unit/0.01ml Soln (100units/ml) SC SCH ×3 (11:30→23:17)
[2021-08-09 13:00] VITALS: BP 129/72
[2021-08-09 17:00] VITALS: BP 133/78
[2021-08-09 22:00] VITALS: BP 132/71
[2021-08-10 05:00] VITALS: BP 144/92
[2021-08-10 08:55] VITALS: BP 126/70
[2021-08-10 13:00] VITALS: BP 148/101
[2021-08-10 22:00] VITALS: BP 127/79
[2021-08-10] MEDS: ACCU-CHEK COMFORT CURVE STRIP VI SCH (22:00)
[2021-08-10] MEDS: InsuLIN REG 1unit/0.01ml Soln (100units/ml) SC SCH (23:22)
[2021-08-10] MEDS: AMPICILLIN & SULBACTAM SODIUM 3 GM in SODIUM CHL 0.9% 100 ML IV SCH (23:35)
[2021-08-11 05:00] VITALS: BP 137/81
[2021-08-11] MEDS: AMPICILLIN & SULBACTAM SODIUM 3 GM in SODIUM CHL 0.9% 100 ML IV SCH ×2 (05:48→14:05)
[2021-08-11] MEDS: ACCU-CHEK COMFORT CURVE STRIP VI SCH ×2 (07:00→12:37)
[2021-08-11] MEDS: InsuLIN REG 1unit/0.01ml Soln (100units/ml) SC SCH ×2 (07:28→12:55)
[2021-08-11 09:00] VITALS: BP 109/61
[2021-08-11 13:00] VITALS: BP 137/62
== END 2021-08-11 16:45 | DRG 853 ==
LOC: ER 09:53 → OVERFLOW 14:26 → WEST WING 20:14
PROVIDERS: ADMIT Internal Medicine; ATTEND Internal Medicine
PROC: B41GYZZ Fluoroscopy of Left Lower Extremity Arteries using Other Contrast (ICD-10-PCS; 2021-07-31)
PROC: B41FYZZ Fluoroscopy of Right Lower Extremity Arteries using Other Contrast (ICD-10-PCS; 2021-07-31)
PROC: 0Y6U0Z0 Detachment at Left 3rd Toe, Complete, Open Approach (ICD-10-PCS; principal; 2021-08-01 08:43)
PROC: 0Y9N0ZZ Drainage of Left Foot, Open Approach (ICD-10-PCS; 2021-08-01 08:43)
PROC: 0Y6N0ZB Detachment at Left Foot, Partial 2nd Ray, Open Approach (ICD-10-PCS; 2021-08-03)
PROC: 0Y6N0ZD Detachment at Left Foot, Partial 4th Ray, Open Approach (ICD-10-PCS; 2021-08-03)
PROC: 0Y6N0ZF Detachment at Left Foot, Partial 5th Ray, Open Approach (ICD-10-PCS; 2021-08-03)
PROC: 0QTP0ZZ Resection of Left Metatarsal, Open Approach (ICD-10-PCS; 2021-08-03)
PROC: 0Y6J0Z1 Detachment at Left Lower Leg, High, Open Approach (ICD-10-PCS; 2021-08-07)
DX: A41.9 Sepsis, unspecified organism (principal); A48.0 Gas gangrene; M86.9 Osteomyelitis, unspecified; E87.1 Hypo-osmolality and hyponatremia; N17.9 Acute kidney failure, unspecified; E11.52 Type 2 diabetes mellitus with diabetic peripheral angiopathy with gangrene; L02.612 Cutaneous abscess of left foot; L03.116 Cellulitis of left lower limb; Z20.822 Contact with and (suspected) exposure to COVID-19; D64.9 Anemia, unspecified; E11.69 Type 2 diabetes mellitus with other specified complication; E88.09 Other disorders of plasma-protein metabolism, not elsewhere classified; I10 Essential (primary) hypertension; K21.9 Gastro-esophageal reflux disease without esophagitis; L03.032 Cellulitis of left toe; I25.10 Atherosclerotic heart disease of native coronary artery without angina pectoris; Z79.82 Long term (current) use of aspirin; Z79.899 Other long term (current) drug therapy; Z82.3 Family history of stroke; Z82.49 Family history of ischemic heart disease and other diseases of the circulatory system
CPT/HCPCS: 36415; 71045; 73700; 75716; 80048; 80053; 80202; 82306; 82962; 83036; 83605; 85025; 85610; 85730; 86850; 86900; 86901; 87040; 87070; 87075; 87077; 87186; 87205; 87426; 93926; 96365; 96366; 96367; 96368; 97163; 99152; 99291; G0378; J0690; J0696; J1100; J1815; J2250; J2405; J2543; J2704; J3490; Q9967

== ENCOUNTER → 2022-02-12 | Outpatient (CLI) | payer OTHER ==
[~2022-02-12] MED LIST changes: +ASPI-543 PO; +BRIM0.2S17 EACHEYE; +CARV3.1240 PO; +DAPA1TAB4 PO; +METF-370 PO; +RAMI5CAP40 PO
== END | disposition home or self-care (01) ==
LOC: XYW 09:15
PROVIDERS: ATTEND Student in an Organized Health Care Education/Training Program
DX: I70.201 Unspecified atherosclerosis of native arteries of extremities, right leg (principal); I73.9 Peripheral vascular disease, unspecified
CPT/HCPCS: 93926

== ENCOUNTER → 2022-04-01 | Outpatient (CLI) | payer OTHER ==
[2022-04-01 09:57] LABS: Basophils # (auto) 0.1 10 ^3/uL (0-0.2); Basophils % (auto) 1.3 % (0.0-2.0); Eosinophils # (auto) 0.1 10 ^3/uL (0-0.8); Eosinophils % (auto) 1.9 % (0.0-7.0); Hematocrit 40.8 % (41.0-53.0); Hemoglobin 13.6 g/dL (13.5-17.5); Lymphocytes # (auto) 1.2 10 ^3/uL (0.4-5.4); Lymphocytes % (auto) 24.7 % (10.0-50.0); Mean Corpuscular Hemoglobin 29.5 pg (28.0-32.0); Mean Corpuscular Hgb Conc. 33.3 g/dL (32.0-36.0); Mean Corpuscular Volume 88.5 fL (80.0-100.0); Monocytes # (auto) 0.5 10 ^3/uL (0-1.3); Monocytes % (auto) 10.6 % (0.0-12.0); Neutrophils # (auto) 2.9 10 ^3/uL (1.6-8.6); Neutrophils % (auto) 61.5 % (37.0-80.0); Nucleated Red Blood Cells % 0.1 %; Red Blood Cells 4.61 10^6/uL (4.5-5.90); Red Cell Distribution Width 14.4 % (11.8-14.3); White Blood Cell 4.7 10^3/uL (4.4-10.8)
[2022-04-01 10:55] LABS: Albumin 3.5 g/dL (3.4-5.0); Calcium 8.5 mg/dL (8.5-10.1); Potassium 4.1 mmol/L (3.5-5.1)
[2022-04-01 11:02] LABS: Bilirubin, Total 0.6 mg/dL (0.2-1.0)
== END | disposition home or self-care (01) ==
LOC: LAB 09:25
PROVIDERS: ATTEND Nurse Practitioner Family
DX: Z00.00 Encounter for general adult medical examination without abnormal findings (principal); E11.65 Type 2 diabetes mellitus with hyperglycemia; R35.1 Nocturia; E78.5 Hyperlipidemia, unspecified
CPT/HCPCS: 36415; 80053; 80061; 83036; 84153; 84443; 85025

== ENCOUNTER → 2022-06-11 | Outpatient (CLI) | payer OTHER ==
[~2022-06-11] VITALS: Ht 182.9 cm; Wt 81.6 kg
[~2022-06-11] MED LIST changes: +ADENOSINE 69 MG in GIVE UN-DILUTED 0 ML IV ONE; +ADENOSINE 90 MG/30 ML INJ IV ONE
== END | disposition home or self-care (01) ==
LOC: Rad HDHVI 08:06
PROVIDERS: ATTEND Internal Medicine Cardiovascular Disease
DX: I08.1 Rheumatic disorders of both mitral and tricuspid valves (principal); R07.89 Other chest pain; I25.2 Old myocardial infarction; E78.5 Hyperlipidemia, unspecified; I73.9 Peripheral vascular disease, unspecified; E11.42 Type 2 diabetes mellitus with diabetic polyneuropathy; I25.10 Atherosclerotic heart disease of native coronary artery without angina pectoris; I25.5 Ischemic cardiomyopathy; E11.22 Type 2 diabetes mellitus with diabetic chronic kidney disease; I13.0 Hypertensive heart and chronic kidney disease with heart failure and stage 1 through stage 4 chronic kidney disease, or unspecified chronic kidney disease; I50.23 Acute on chronic systolic (congestive) heart failure; N18.2 Chronic kidney disease, stage 2 (mild); R06.02 Shortness of breath; Z79.899 Other long term (current) drug therapy; Z79.84 Long term (current) use of oral hypoglycemic drugs; Z95.0 Presence of cardiac pacemaker
CPT/HCPCS: 78452; 93005; 93306; 96374; 96375; A9500; J0153

== ENCOUNTER → 2022-07-24 | Outpatient (CLI) | payer OTHER ==
[~2022-07-24] MED LIST changes: -ADENOSINE 69 MG in GIVE UN-DILUTED 0 ML IV ONE; -ADENOSINE 90 MG/30 ML INJ IV ONE; +CANA300T PO; +SILD100T57 PO
[2022-07-24 08:24] VITALS: BP 155/81
[2022-07-24 08:53] VITALS: BP 137/72
[2022-07-24 12:08] LABS: Basophils # (auto) 0.1 10 ^3/uL (0-0.2); Eosinophils # (auto) 0.4 10 ^3/uL (0-0.8); Eosinophils % (auto) 7.2 % (0.0-7.0); Hemoglobin 12.4 g/dL (13.5-17.5); Lymphocytes # (auto) 0.5 10 ^3/uL (0.4-5.4); Lymphocytes % (auto) 9.8 % (10.0-50.0); Mean Corpuscular Hgb Conc. 32.6 g/dL (32.0-36.0); Mean Corpuscular Volume 88.9 fL (80.0-100.0); Monocytes # (auto) 0.6 10 ^3/uL (0-1.3); Monocytes % (auto) 10.9 % (0.0-12.0); Neutrophils # (auto) 3.9 10 ^3/uL (1.6-8.6); Neutrophils % (auto) 71.1 % (37.0-80.0); Nucleated Red Blood Cells % 0.1 %; Red Blood Cells 4.27 10^6/uL (4.5-5.90); Red Cell Distribution Width 13.7 % (11.8-14.3); White Blood Cell 5.4 10^3/uL (4.4-10.8)
[2022-07-24 12:27] LABS: BUN/Creatinine Ratio 13.3; Calcium 8.9 mg/dL (8.5-10.1); Potassium 3.9 mmol/L (3.5-5.1)
[2022-07-24 12:29] LABS: INR 1.03 (0.9-1.15); Partial Thromboplastin Time 30.8 sec (24.6-33.4)
== END | disposition home or self-care (01) ==
LOC: LAB 08:12
PROVIDERS: ATTEND Internal Medicine Cardiovascular Disease
DX: R79.1 Abnormal coagulation profile (principal)
CPT/HCPCS: 36415; 80048; 85025; 85610; 85730; 93005; G0463

== ENCOUNTER 2022-07-25 07:49 | Day surgery (SDC) | payer OTHER ==
[~2022-07-25] VITALS: Ht 182.9 cm; Wt 80.7 kg
[~2022-07-25 07:49] MED LIST changes: -ASPI-543 PO; -ASPI81CH43 PO; -CARV3.1240 PO; -Captopril PO; -FAMO20TA10 PO; -METF-370 PO; -RAMI5CAP40 PO; -SIMV20TA2 PO; -SPIR25TA PO; -TICA90TA PO
[2022-07-25] MEDS ORDERED: VANCOMYCIN 1GM/250ML 250 ML IV ONE ×2 (08:45→10:59)
[2022-07-25] MEDS ORDERED: VANCOMYCIN HCL 1000 MG VL ONE (10:44)
[2022-07-25] MEDS ORDERED: MIDAZOLAM HCL 2MG/2ML 2ml VIAL (1mg/ml) ONE (10:45)
[2022-07-25] MEDS ORDERED: fentaNYL CITRATE 100 MCG/2 ML VL ONE (10:45)
[2022-07-25] MEDS ORDERED: LIDOCAINE 2%HCL (LOCAL ANESTH.) INJ 20ML MDV ONE (11:02)
[2022-07-25 12:37] VITALS: BP 94/44
[2022-07-25 12:51] VITALS: BP 85/53
[2022-07-25 13:05] VITALS: BP 93/60
[2022-07-25 13:20] VITALS: BP 98/64
[2022-07-25 13:55] VITALS: BP 92/59
[2022-07-25 14:10] VITALS: BP 117/65
== END 2022-07-25 14:12 | disposition home or self-care (01) ==
LOC: CATH 07:49
PROVIDERS: ATTEND Internal Medicine Cardiovascular Disease
DX: Z45.02 Encounter for adjustment and management of automatic implantable cardiac defibrillator (principal); I42.0 Dilated cardiomyopathy; I50.9 Heart failure, unspecified; I10 Essential (primary) hypertension; I73.9 Peripheral vascular disease, unspecified; E78.5 Hyperlipidemia, unspecified; Z86.39 Personal history of other endocrine, nutritional and metabolic disease; Z82.49 Family history of ischemic heart disease and other diseases of the circulatory system; Z87.891 Personal history of nicotine dependence; Z79.84 Long term (current) use of oral hypoglycemic drugs; Z80.9 Family history of malignant neoplasm, unspecified; Z20.822 Contact with and (suspected) exposure to COVID-19
CPT/HCPCS: 33264; C1882; J2250; J3010; J3370; 99152; 99153

== ENCOUNTER 2022-07-26 07:39 | Inpatient (IN) | payer OTHER ==
[~2022-07-26] VITALS: Ht 185.4 cm; Wt 76.8 kg
[2022-07-26] MEDS ORDERED: METOPROLOL TARTRATE 1MG/1ML-5ML VIAL IV ONE ×2 (08:09→08:15)
[2022-07-26] MEDS ORDERED: LACTATED RINGER'S 1,000 ML IV ONE (08:15)
[2022-07-26] MEDS ORDERED: LIDOCAINE 50MG/5ML INJ 5ML SYRINGE IV ONE (08:15)
[2022-07-26 08:40] LABS: Basophils # (auto) 0 10 ^3/uL (0-0.2); Basophils % (auto) 0.6 % (0.0-2.0); Eosinophils # (auto) 0.2 10 ^3/uL (0-0.8); Eosinophils % (auto) 3.1 % (0.0-7.0); Hematocrit 37.7 % (41.0-53.0); Hemoglobin 12.4 g/dL (13.5-17.5); Lymphocytes # (auto) 0.6 10 ^3/uL (0.4-5.4); Lymphocytes % (auto) 8.3 % (10.0-50.0); Mean Corpuscular Hemoglobin 29.3 pg (28.0-32.0); Mean Corpuscular Volume 88.6 fL (80.0-100.0); Monocytes # (auto) 0.5 10 ^3/uL (0-1.3); Neutrophils # (auto) 6.2 10 ^3/uL (1.6-8.6); Nucleated Red Blood Cells % 0.1 %; Red Blood Cells 4.25 10^6/uL (4.5-5.90); Red Cell Distribution Width 13.9 % (11.8-14.3); White Blood Cell 7.7 10^3/uL (4.4-10.8)
[2022-07-26 09:01] LABS: INR 1.09 (0.9-1.15); Partial Thromboplastin Time 27.7 sec (24.6-33.4)
[2022-07-26 09:19] LABS: Albumin 3.4 g/dL (3.4-5.0); Calcium 8.8 mg/dL (8.5-10.1); Magnesium 2.1 mg/dL (1.6-2.6); Potassium 3.9 mmol/L (3.5-5.1)
[2022-07-26 09:22] LABS: BUN/Creatinine Ratio 13.8; Bilirubin, Total 0.5 mg/dL (0.2-1.0)
[2022-07-26 09:31] LABS: Lactic Acid w/Reflex 3.8 mmol/L (0.4-2.0)
[2022-07-26] MEDS ORDERED: METOPROLOL SUCCINATE XL 50 MG TAB PO SCH (10:00)
[2022-07-26 10:01] LABS: Urine Bacteria NONE SEEN /hpf (None Seen); Urine Blood Negative /uL (Negative); Urine Specific Gravity 1.029 (1.001-1.035); Urine WBC 1 /hpf (0 - 3)
[2022-07-26] MEDS ORDERED: ACETAMINOPHEN 325 MG TAB PO PRN (11:15)
[2022-07-26] MEDS ORDERED: PANTOPRAZOLE 40 MG/10 ML VIAL INJ IV ONE (11:15)
[2022-07-26] MEDS ORDERED: MORPHINE SULFATE INJ 2 MG/ml SYRG IV PRN (11:15)
[2022-07-26] MEDS ORDERED: DEXTROSE (50%) 50ML SYRG IV PRN (11:15)
[2022-07-26] MEDS ORDERED: NITROGLYCERIN 0.4 MG SL TAB SL PRN (11:15)
[2022-07-26] MEDS: ACCU-CHEK COMFORT CURVE STRIP VI SCH ×3 (12:25→21:49)
[2022-07-26] MEDS: InsuLIN REG 1unit/0.01ml Soln (100units/ml) SC SCH ×3 (12:51→21:49)
[2022-07-26] MEDS: AMIODARONE HCL 200 MG TAB PO SCH (21:42)
[2022-07-26] MEDS: CARVEDILOL 3.125 MG TAB PO SCH (21:44)
[2022-07-27] VITALS (7 sets, daily range): BP systolic 101–138; BP diastolic 52–69
[2022-07-27] MEDS: InsuLIN REG 1unit/0.01ml Soln (100units/ml) SC SCH ×4 (07:00→22:49)
[2022-07-27] MEDS: ACCU-CHEK COMFORT CURVE STRIP VI SCH ×4 (07:18→22:45)
[2022-07-27 08:32] LABS: Basophils # (auto) 0.1 10 ^3/uL (0-0.2); Basophils % (auto) 1.1 % (0.0-2.0); Eosinophils # (auto) 0.2 10 ^3/uL (0-0.8); Eosinophils % (auto) 3.7 % (0.0-7.0); Hematocrit 34.2 % (41.0-53.0); Hemoglobin 11.4 g/dL (13.5-17.5); Lymphocytes # (auto) 0.8 10 ^3/uL (0.4-5.4); Lymphocytes % (auto) 13.4 % (10.0-50.0); Mean Corpuscular Hemoglobin 29.5 pg (28.0-32.0); Mean Corpuscular Hgb Conc. 33.4 g/dL (32.0-36.0); Mean Corpuscular Volume 88.2 fL (80.0-100.0); Monocytes # (auto) 0.6 10 ^3/uL (0-1.3); Monocytes % (auto) 10.4 % (0.0-12.0); Neutrophils # (auto) 4.3 10 ^3/uL (1.6-8.6); Neutrophils % (auto) 71.4 % (37.0-80.0); Nucleated Red Blood Cells % 0.1 %; Red Blood Cells 3.88 10^6/uL (4.5-5.90); Red Cell Distribution Width 13.5 % (11.8-14.3); White Blood Cell 6.1 10^3/uL (4.4-10.8)
[2022-07-27 08:41] LABS: Albumin 2.9 g/dL (3.4-5.0); Calcium 8.4 mg/dL (8.5-10.1); Potassium 3.8 mmol/L (3.5-5.1)
[2022-07-27 08:45] LABS: BUN/Creatinine Ratio 17.8; Bilirubin, Total 0.6 mg/dL (0.2-1.0); Total Protein 6.7 g/dL (6.4-8.2)
[2022-07-27] MEDS: PANTOPRAZOLE 40 MG/10 ML VIAL INJ IV SCH (11:30)
[2022-07-27] MEDS: AMIODARONE HCL 200 MG TAB PO SCH ×2 (11:30→22:45)
[2022-07-27] MEDS: CARVEDILOL 3.125 MG TAB PO SCH ×2 (11:30→22:44)
[2022-07-28 05:00] VITALS: BP 131/70
[2022-07-28] MEDS: ACCU-CHEK COMFORT CURVE STRIP VI SCH ×3 (06:31→17:00)
[2022-07-28] MEDS: InsuLIN REG 1unit/0.01ml Soln (100units/ml) SC SCH ×3 (06:36→17:00)
[2022-07-28 08:00] VITALS: BP 115/73
[2022-07-28 09:00] VITALS: BP 115/73
[2022-07-28] MEDS: PANTOPRAZOLE 40 MG/10 ML VIAL INJ IV SCH (10:37)
[2022-07-28] MEDS: AMIODARONE HCL 200 MG TAB PO SCH (10:38)
[2022-07-28] MEDS: CARVEDILOL 3.125 MG TAB PO SCH (10:39)
[2022-07-28 13:00] VITALS: BP 102/55
[2022-07-28 17:00] VITALS: BP 120/65
[2022-07-28 17:59] VITALS: BP 115/73
== END 2022-07-28 19:05 | disposition home or self-care (01) | DRG 280 ==
LOC: ER 07:39 → EDBD 07:39 → TELE 11:11 → TELE-WESTW 22:14
PROVIDERS: ADMIT Nurse Practitioner Family; ATTEND Nurse Practitioner Family
DX: T82.111A Breakdown (mechanical) of cardiac pulse generator (battery), initial encounter (principal); I50.23 Acute on chronic systolic (congestive) heart failure; I21.4 Non-ST elevation (NSTEMI) myocardial infarction; I47.20 Ventricular tachycardia, unspecified; E87.20 Acidosis, unspecified; Y71.2 Prosthetic and other implants, materials and accessory cardiovascular devices associated with adverse incidents; I11.0 Hypertensive heart disease with heart failure; E78.5 Hyperlipidemia, unspecified; K21.9 Gastro-esophageal reflux disease without esophagitis; E11.9 Type 2 diabetes mellitus without complications; Z20.822 Contact with and (suspected) exposure to COVID-19; Z79.899 Other long term (current) drug therapy; Y92.89 Other specified places as the place of occurrence of the external cause; Z82.3 Family history of stroke; Z82.49 Family history of ischemic heart disease and other diseases of the circulatory system; Z87.891 Personal history of nicotine dependence; Z89.512 Acquired absence of left leg below knee; Z95.0 Presence of cardiac pacemaker
CPT/HCPCS: 36415; 36600; 71045; 80048; 80053; 81001; 82010; 82805; 82962; 83036; 83605; 83690; 83735; 83880; 83930; 84484; 85025; 85610; 85730; 87040; 87426; 93005; 93306; 96361; 96372; 96374; 99152; 99153; 99291; C1882; C9113; G0378; G0463; J1815; J2250

== ENCOUNTER 2022-07-30 03:20 | Inpatient (IN) | payer OTHER ==
[~2022-07-30] VITALS: Ht 182.9 cm; Wt 76.1 kg
[2022-07-30 03:45] LABS: Basophils # (auto) 0.1 10 ^3/uL (0-0.2); Basophils % (auto) 1.1 % (0.0-2.0); Eosinophils # (auto) 0.3 10 ^3/uL (0-0.8); Eosinophils % (auto) 4.8 % (0.0-7.0); Hematocrit 37.2 % (41.0-53.0); Hemoglobin 12.2 g/dL (13.5-17.5); Lymphocytes # (auto) 0.7 10 ^3/uL (0.4-5.4); Lymphocytes % (auto) 12.7 % (10.0-50.0); Mean Corpuscular Hemoglobin 29.6 pg (28.0-32.0); Mean Corpuscular Hgb Conc. 32.8 g/dL (32.0-36.0); Mean Corpuscular Volume 90.3 fL (80.0-100.0); Monocytes # (auto) 0.5 10 ^3/uL (0-1.3); Monocytes % (auto) 9.1 % (0.0-12.0); Neutrophils # (auto) 3.8 10 ^3/uL (1.6-8.6); Neutrophils % (auto) 72.3 % (37.0-80.0); Nucleated Red Blood Cells % 0.1 %; Red Blood Cells 4.13 10^6/uL (4.5-5.90); White Blood Cell 5.3 10^3/uL (4.4-10.8)
[2022-07-30 03:55] LABS: INR 1.09 (0.9-1.15); Partial Thromboplastin Time 28.1 sec (24.6-33.4)
[2022-07-30 03:58] LABS: BUN/Creatinine Ratio 17.6; Calcium 8.7 mg/dL (8.5-10.1); Magnesium 2.1 mg/dL (1.6-2.6); Potassium 3.5 mmol/L (3.5-5.1)
[2022-07-30 04:01] LABS: Bilirubin, Total 0.5 mg/dL (0.2-1.0); Total Protein 7.3 g/dL (6.4-8.2)
[2022-07-30 04:26] LABS: Urine Bacteria NONE SEEN /hpf (None Seen); Urine Blood Negative /uL (Negative); Urine Specific Gravity 1.027 (1.001-1.035); Urine WBC <1 /hpf (0 - 3)
[2022-07-30] MEDS ORDERED: SACU1TAB PO (09:28)
[2022-07-30] MEDS ORDERED: AMIO200T4 PO (09:28)
[2022-07-30] MEDS ORDERED: NITROGLYCERIN 0.4 MG SL TAB SL PRN (09:30)
[2022-07-30] MEDS ORDERED: MORPHINE SULFATE INJ 2 MG/ml SYRG IV PRN (09:30)
[2022-07-30] MEDS: METOPROLOL SUCCINATE XL 50 MG TAB PO SCH (09:44)
[2022-07-30] MEDS: ASPirin 81 mg TAB PO SCH (09:44)
[2022-07-30] MEDS: SACUBITRIL-VALSARTAN 24mg/26mg TAB PO SCH (09:45)
[2022-07-30] MEDS: ENOXAPARIN SOD 40 MG/0.4 ML SYRINGE SC SCH (09:45)
[2022-07-30] MEDS: AMIODARONE HCL 200 MG TAB PO SCH ×2 (09:45→22:37)
[2022-07-30] MEDS ORDERED: PATIENTS OWN MEDICATION (Dapagliflozin Propanediol (Farxiga) 1 TAB) PO SCH (10:00)
[2022-07-30] MEDS ORDERED: CANAGLIFLOZIN 300 MG PO SCH (10:00)
[2022-07-30] MEDS ORDERED: DEXTROSE (50%) 50ML SYRG IV PRN (10:00)
[2022-07-30] MEDS: EMPAGLIFLOZIN 10 MG TAB PO SCH (10:32)
[2022-07-30 10:39] LABS: Cholesterol 149 mg/dL (< 200); HDL Cholesterol 32 mg/dL (40-59); LDL Cholesterol 104 mg/dL (< 100); Triglycerides 96 mg/dL (< 150)
[2022-07-30] MEDS: InsuLIN REG 1unit/0.01ml Soln (100units/ml) SC SCH ×3 (12:19→22:41)
[2022-07-30] MEDS: ACCU-CHEK COMFORT CURVE STRIP VI SCH ×3 (12:19→22:38)
[2022-07-30] MEDS ORDERED: INSULIN LANTUS (GLARGINE) 1 /0.01ml (100units/ml) SC SCH (22:00)
[2022-07-30 22:10] VITALS: BP 146/73
[2022-07-30] MEDS: ATORVASTATIN 20 MG TAB PO SCH (22:37)
[2022-07-30 23:44] VITALS: BP 146/73
[2022-07-31 05:00] VITALS: BP 139/71
[2022-07-31 06:01] LABS: Basophils # (auto) 0.1 10 ^3/uL (0-0.2); Basophils % (auto) 1.4 % (0.0-2.0); Eosinophils # (auto) 0.3 10 ^3/uL (0-0.8); Eosinophils % (auto) 6.7 % (0.0-7.0); Hematocrit 33.6 % (41.0-53.0); Hemoglobin 11.3 g/dL (13.5-17.5); Lymphocytes # (auto) 0.8 10 ^3/uL (0.4-5.4); Lymphocytes % (auto) 17.5 % (10.0-50.0); Mean Corpuscular Hemoglobin 29.4 pg (28.0-32.0); Mean Corpuscular Hgb Conc. 33.6 g/dL (32.0-36.0); Mean Corpuscular Volume 87.5 fL (80.0-100.0); Monocytes # (auto) 0.6 10 ^3/uL (0-1.3); Monocytes % (auto) 11.6 % (0.0-12.0); Neutrophils % (auto) 62.8 % (37.0-80.0); Nucleated Red Blood Cells % 0.1 %; Red Blood Cells 3.84 10^6/uL (4.5-5.90); Red Cell Distribution Width 13.8 % (11.8-14.3); White Blood Cell 4.8 10^3/uL (4.4-10.8)
[2022-07-31 06:12] LABS: Albumin 2.8 g/dL (3.4-5.0); BUN/Creatinine Ratio 21.1; Calcium 7.9 mg/dL (8.5-10.1); Potassium 3.7 mmol/L (3.5-5.1)
[2022-07-31 06:15] LABS: Bilirubin, Total 0.4 mg/dL (0.2-1.0); Total Protein 5.8 g/dL (6.4-8.2)
[2022-07-31] MEDS: ACCU-CHEK COMFORT CURVE STRIP VI SCH ×4 (06:49→21:59)
[2022-07-31] MEDS: InsuLIN REG 1unit/0.01ml Soln (100units/ml) SC SCH ×4 (06:49→22:00)
[2022-07-31 09:00] VITALS: BP 123/69
[2022-07-31] MEDS: ASPirin 81 mg TAB PO SCH (09:16)
[2022-07-31] MEDS: METOPROLOL SUCCINATE XL 50 MG TAB PO SCH (09:18)
[2022-07-31] MEDS: AMIODARONE HCL 200 MG TAB PO SCH ×2 (09:18→21:54)
[2022-07-31] MEDS: EMPAGLIFLOZIN 10 MG TAB PO SCH (09:18)
[2022-07-31] MEDS: SACUBITRIL-VALSARTAN 24mg/26mg TAB PO SCH (09:18)
[2022-07-31] MEDS: ENOXAPARIN SOD 40 MG/0.4 ML SYRINGE SC SCH (10:00)
[2022-07-31 13:00] VITALS: BP 129/72
[2022-07-31 17:00] VITALS: BP 126/72
[2022-07-31] MEDS: ATORVASTATIN 20 MG TAB PO SCH (21:54)
[2022-07-31 22:00] VITALS: BP 138/77
[2022-08-01] VITALS (8 sets, daily range): BP systolic 107–136; BP diastolic 53–86
[2022-08-01 06:29] LABS: BUN/Creatinine Ratio 19.8; Calcium 8.5 mg/dL (8.5-10.1); Magnesium 2.4 mg/dL (1.6-2.6); Potassium 3.9 mmol/L (3.5-5.1)
[2022-08-01] MEDS: ACCU-CHEK COMFORT CURVE STRIP VI SCH ×4 (06:31→22:01)
[2022-08-01] MEDS: InsuLIN REG 1unit/0.01ml Soln (100units/ml) SC SCH ×4 (06:31→22:01)
[2022-08-01] MEDS: SACUBITRIL-VALSARTAN 24mg/26mg TAB PO SCH ×2 (08:55→10:00)
[2022-08-01] MEDS: ASPirin 81 mg TAB PO SCH (08:55)
[2022-08-01] MEDS ORDERED: MIDAZOLAM HCL 2MG/2ML 2ml VIAL (1mg/ml) ONE (09:36)
[2022-08-01] MEDS ORDERED: ANGIOMAX 250 MG VIAL IV ONE (09:36)
[2022-08-01] MEDS ORDERED: SODIUM CHL 0.9% 50 ML ONE (09:36)
[2022-08-01] MEDS ORDERED: fentaNYL CITRATE 100 MCG/2 ML VL ONE (09:36)
[2022-08-01] MEDS ORDERED: IOHEXOL 350 MG/ML 100ML IJ ONE (09:39)
[2022-08-01] MEDS ORDERED: LIDOCAINE 2%HCL (LOCAL ANESTH.) INJ 20ML MDV ONE (09:39)
[2022-08-01] MEDS: AMIODARONE HCL 200 MG TAB PO SCH ×2 (10:00→21:50)
[2022-08-01] MEDS: EMPAGLIFLOZIN 10 MG TAB PO SCH (10:00)
[2022-08-01] MEDS: METOPROLOL SUCCINATE XL 50 MG TAB PO SCH (10:00)
[2022-08-01] MEDS ORDERED: EPTIFIBATIDE INJ (2MG/ML) 10ML VIAL IV ONE (10:13)
[2022-08-01] MEDS ORDERED: TICAGRELOR 90 MG TAB ONE (10:16)
[2022-08-01] MEDS: ATORVASTATIN 20 MG TAB PO SCH (21:50)
[2022-08-01] MEDS: TICAGRELOR 90 MG TAB PO SCH (21:50)
[2022-08-02 05:00] VITALS: BP 104/71
[2022-08-02] MEDS: InsuLIN REG 1unit/0.01ml Soln (100units/ml) SC SCH ×3 (06:24→17:00)
[2022-08-02] MEDS: ACCU-CHEK COMFORT CURVE STRIP VI SCH ×3 (06:24→17:00)
[2022-08-02 09:00] VITALS: BP 116/85
[2022-08-02] MEDS: ASPirin 81 mg TAB PO SCH (09:58)
[2022-08-02] MEDS: AMIODARONE HCL 200 MG TAB PO SCH (09:58)
[2022-08-02] MEDS: SACUBITRIL-VALSARTAN 24mg/26mg TAB PO SCH (09:58)
[2022-08-02] MEDS: METOPROLOL SUCCINATE XL 50 MG TAB PO SCH (09:59)
[2022-08-02] MEDS: TICAGRELOR 90 MG TAB PO SCH (09:59)
[2022-08-02] MEDS: EMPAGLIFLOZIN 10 MG TAB PO SCH (09:59)
[2022-08-02] MEDS ORDERED: TICA90TA PO (10:38)
[2022-08-02] MEDS ORDERED: ATOR20TA50 PO (10:38)
[2022-08-02 13:00] VITALS: BP 130/65
[2022-08-02 17:00] VITALS: BP 109/67
[2022-08-02 17:05] VITALS: BP 116/65
== END 2022-08-02 18:10 | disposition home or self-care (01) | DRG 248 ==
LOC: EDBD 03:20 → ER 03:20 → TELE 09:21 → TELE-EAST 22:04
PROVIDERS: ADMIT Registered Nurse; ATTEND Internal Medicine
PROC: 3E073PZ Introduction of Platelet Inhibitor into Coronary Artery, Percutaneous Approach (ICD-10-PCS; principal; 2022-08-01)
PROC: 02703FZ Dilation of Coronary Artery, One Artery with Three Intraluminal Devices, Percutaneous Approach (ICD-10-PCS; 2022-08-01)
PROC: 4A023N7 Measurement of Cardiac Sampling and Pressure, Left Heart, Percutaneous Approach (ICD-10-PCS; 2022-08-01)
PROC: B2111ZZ Fluoroscopy of Multiple Coronary Arteries using Low Osmolar Contrast (ICD-10-PCS; 2022-08-01)
PROC: B2151ZZ Fluoroscopy of Left Heart using Low Osmolar Contrast (ICD-10-PCS; 2022-08-01)
DX: T82.118A Breakdown (mechanical) of other cardiac electronic device, initial encounter (principal); I21.4 Non-ST elevation (NSTEMI) myocardial infarction; I50.23 Acute on chronic systolic (congestive) heart failure; I24.9 Acute ischemic heart disease, unspecified; Z79.4 Long term (current) use of insulin; E11.65 Type 2 diabetes mellitus with hyperglycemia; E78.5 Hyperlipidemia, unspecified; I25.5 Ischemic cardiomyopathy; I11.0 Hypertensive heart disease with heart failure; Z20.822 Contact with and (suspected) exposure to COVID-19; Z79.02 Long term (current) use of antithrombotics/antiplatelets; Z79.899 Other long term (current) drug therapy; Z95.810 Presence of automatic (implantable) cardiac defibrillator; Z89.512 Acquired absence of left leg below knee; Z87.891 Personal history of nicotine dependence; Z82.49 Family history of ischemic heart disease and other diseases of the circulatory system; Z82.3 Family history of stroke
CPT/HCPCS: 36415; 71045; 80048; 80053; 80061; 81001; 82962; 83735; 83880; 84443; 84484; 85025; 85610; 85730; 86850; 86900; 86901; 87081; 87426; 92928; 92929; 93005; 93458; 99152; 99153; C1874; G0378; J1815; J2250

== ENCOUNTER 2022-09-05 06:56 | Day surgery (SDC) | payer OTHER ==
[2022-09-03 11:58] LABS: Basophils # (auto) 0.1 10 ^3/uL (0-0.2); Basophils % (auto) 0.9 % (0.0-2.0); Eosinophils # (auto) 0.1 10 ^3/uL (0-0.8); Eosinophils % (auto) 1.5 % (0.0-7.0); Hematocrit 37.3 % (41.0-53.0); Hemoglobin 12.4 g/dL (13.5-17.5); Lymphocytes # (auto) 0.7 10 ^3/uL (0.4-5.4); Mean Corpuscular Hemoglobin 29.3 pg (28.0-32.0); Mean Corpuscular Hgb Conc. 33.2 g/dL (32.0-36.0); Mean Corpuscular Volume 88.2 fL (80.0-100.0); Monocytes # (auto) 0.4 10 ^3/uL (0-1.3); Monocytes % (auto) 7.4 % (0.0-12.0); Neutrophils # (auto) 4.4 10 ^3/uL (1.6-8.6); Neutrophils % (auto) 78.2 % (37.0-80.0); Nucleated Red Blood Cells % 0.1 %; Red Blood Cells 4.23 10^6/uL (4.5-5.90); Red Cell Distribution Width 15.3 % (11.8-14.3); White Blood Cell 5.7 10^3/uL (4.4-10.8)
[2022-09-03 12:12] LABS: INR 1.04 (0.9-1.15); Partial Thromboplastin Time 27.5 sec (24.6-33.4)
[2022-09-03 12:27] LABS: Calcium 8.7 mg/dL (8.5-10.1); Potassium 4.2 mmol/L (3.5-5.1)
[~2022-09-05] VITALS: Ht 182.9 cm; Wt 81.6 kg
[2022-09-05] VITALS (10 sets, daily range): BP systolic 122–136; BP diastolic 57–81
[~2022-09-05 06:56] MED LIST changes: +AMIO200T4 PO; +ASPI-543 PO; +ATOR20TA50 PO; -CANA300T PO; +GLIP5TAB12 PO; +SACU1TAB PO
[2022-09-05] MEDS ORDERED: ANGIOMAX 250 MG VIAL IV ONE (07:51)
[2022-09-05] MEDS ORDERED: SODIUM CHL 0.9% 50 ML ONE (07:52)
[2022-09-05] MEDS ORDERED: IODIXANOL 320MG/ML 100ML BTL IV ONE (07:52)
[2022-09-05] MEDS ORDERED: fentaNYL CITRATE 100 MCG/2 ML VL ONE (07:52)
[2022-09-05] MEDS ORDERED: MIDAZOLAM HCL 2MG/2ML 2ml VIAL (1mg/ml) ONE (07:52)
[2022-09-05] MEDS ORDERED: LIDOCAINE 2%HCL (LOCAL ANESTH.) INJ 20ML MDV ONE (08:14)
[2022-09-05] MEDS ORDERED: ATROPINE SULF 1 MG/10ml SYR ONE (09:34)
[2022-09-05] MEDS ORDERED: CLOPIDOGREL 300 MG TAB ONE (11:03)
[2022-09-05] MEDS ORDERED: CLOP75TA28 PO (11:22)
[2022-09-05] MEDS ORDERED: CAR3125T PO (11:27)
== END 2022-09-05 13:45 | disposition home or self-care (01) ==
LOC: CATH 06:56
PROVIDERS: ATTEND Internal Medicine Cardiovascular Disease
DX: I25.10 Atherosclerotic heart disease of native coronary artery without angina pectoris (principal); I42.0 Dilated cardiomyopathy; I25.5 Ischemic cardiomyopathy; I11.0 Hypertensive heart disease with heart failure; I50.23 Acute on chronic systolic (congestive) heart failure; E78.5 Hyperlipidemia, unspecified; E11.51 Type 2 diabetes mellitus with diabetic peripheral angiopathy without gangrene; Z87.891 Personal history of nicotine dependence; I25.2 Old myocardial infarction; Z79.899 Other long term (current) drug therapy; Z79.01 Long term (current) use of anticoagulants; Z20.822 Contact with and (suspected) exposure to COVID-19
CPT/HCPCS: 36415; 80048; 85025; 85610; 85730; 93458; 93571; C9600; J0583; J1644; J2250; J3010; Q9967; U0003

== ENCOUNTER → 2022-10-15 | Outpatient (CLI) | payer OTHER ==
[~2022-10-15] MED LIST changes: +CLOP75TA28 PO
== END | disposition home or self-care (01) ==
LOC: Rad HDHVI 08:06
PROVIDERS: ATTEND Internal Medicine Cardiovascular Disease
DX: I08.3 Combined rheumatic disorders of mitral, aortic and tricuspid valves (principal); I10 Essential (primary) hypertension; E78.5 Hyperlipidemia, unspecified
CPT/HCPCS: 93306

== ENCOUNTER → 2022-11-25 | Outpatient (CLI) | payer OTHER ==
[~2022-11-25] MED LIST changes: +AMIO200T13 PO; -AMIO200T4 PO
[2022-11-25 08:50] VITALS: BP 132/82
[2022-11-25 09:05] VITALS: BP 156/84
== END | disposition home or self-care (01) ==
LOC: CHF HDHVI 08:46
PROVIDERS: ATTEND Internal Medicine Cardiovascular Disease
DX: Z01.812 Encounter for preprocedural laboratory examination (principal); T82.118A Breakdown (mechanical) of other cardiac electronic device, initial encounter; R94.31 Abnormal electrocardiogram [ECG] [EKG]
CPT/HCPCS: 93005; G0463

== ENCOUNTER 2022-11-28 06:55 | Day surgery (SDC) | payer OTHER ==
[2022-11-25 11:07] LABS: Basophils # (auto) 0.1 10 ^3/uL (0-0.2); Basophils % (auto) 2.2 % (0.0-2.0); Eosinophils # (auto) 0.1 10 ^3/uL (0-0.8); Eosinophils % (auto) 2.7 % (0.0-7.0); Hematocrit 35.7 % (41.0-53.0); Hemoglobin 11.8 g/dL (13.5-17.5); Lymphocytes # (auto) 0.7 10 ^3/uL (0.4-5.4); Lymphocytes % (auto) 17.2 % (10.0-50.0); Mean Corpuscular Hemoglobin 29.3 pg (28.0-32.0); Mean Corpuscular Hgb Conc. 33.2 g/dL (32.0-36.0); Mean Corpuscular Volume 88.3 fL (80.0-100.0); Monocytes # (auto) 0.4 10 ^3/uL (0-1.3); Monocytes % (auto) 9.4 % (0.0-12.0); Neutrophils # (auto) 2.7 10 ^3/uL (1.6-8.6); Neutrophils % (auto) 68.5 % (37.0-80.0); Nucleated Red Blood Cells % 0.1 %; Red Blood Cells 4.05 10^6/uL (4.5-5.90); Red Cell Distribution Width 14.7 % (11.8-14.3); White Blood Cell 3.9 10^3/uL (4.4-10.8)
[2022-11-25 11:20] LABS: INR 1.13 (0.9-1.15); Partial Thromboplastin Time 27.7 sec (24.6-33.4)
[2022-11-25 11:28] LABS: BUN/Creatinine Ratio 14.7 (10.0-20.0); Calcium 8.4 mg/dL (8.5-10.1); Potassium 3.6 mmol/L (3.5-5.1)
[~2022-11-28] VITALS: Ht 182.9 cm; Wt 77.1 kg
[~2022-11-28 06:55] MED LIST changes: -ATOR20TA50 PO; -CLOP75TA28 PO; -GLIP5TAB12 PO; -SILD100T57 PO
[2022-11-28] MEDS ORDERED: VANCOMYCIN HCL 1000 MG VL ONE (09:57)
[2022-11-28] MEDS ORDERED: MIDAZOLAM HCL 2MG/2ML 2ml VIAL (1mg/ml) ONE (09:58)
[2022-11-28] MEDS ORDERED: LIDOCAINE 2%HCL (LOCAL ANESTH.) INJ 20ML MDV ONE (09:58)
[2022-11-28] MEDS ORDERED: VANCOMYCIN 1GM/250ML 250 ML IV ONE (09:58)
[2022-11-28] MEDS ORDERED: fentaNYL CITRATE 100 MCG/2 ML VL ONE (09:58)
[2022-11-28] MEDS ORDERED: IOHEXOL 350 MG/ML 500ML BOTTLE IJ ONE (10:36)
== END 2022-11-28 13:48 | disposition home or self-care (01) ==
LOC: CATH 06:55
PROVIDERS: ATTEND Internal Medicine Cardiovascular Disease
DX: I25.5 Ischemic cardiomyopathy (principal); I77.1 Stricture of artery; I10 Essential (primary) hypertension; E78.5 Hyperlipidemia, unspecified; I25.2 Old myocardial infarction; Z87.891 Personal history of nicotine dependence; E11.51 Type 2 diabetes mellitus with diabetic peripheral angiopathy without gangrene; E11.40 Type 2 diabetes mellitus with diabetic neuropathy, unspecified; E11.21 Type 2 diabetes mellitus with diabetic nephropathy; Z79.899 Other long term (current) drug therapy
CPT/HCPCS: 33216; 33244; 36415; 37248; 71045; 80048; 85025; 85610; 85730; 93005; C1769; C1777; J2250; J3010; J3370; Q9967; 99152; 99153

== ENCOUNTER → 2022-11-29 | Outpatient (CLI) | payer OTHER | END | disposition home or self-care (01) | LOC: Rad HDHVI 13:52 | PROVIDERS: ATTEND Internal Medicine Cardiovascular Disease | DX: Z48.89 Encounter for other specified surgical aftercare (principal) | CPT/HCPCS: 71046 ==

== ENCOUNTER → 2023-04-15 | Outpatient (CLI) | payer OTHER ==
[2023-04-15 08:37] LABS: Basophils # (auto) 0.1 10 ^3/uL (0-0.2); Basophils % (auto) 1.4 % (0.0-2.0); Eosinophils # (auto) 0.1 10 ^3/uL (0-0.8); Eosinophils % (auto) 2.7 % (0.0-7.0); Hematocrit 40.4 % (41.0-53.0); Hemoglobin 13.3 g/dL (13.5-17.5); Lymphocytes # (auto) 0.8 10 ^3/uL (0.4-5.4); Mean Corpuscular Hemoglobin 28.9 pg (28.0-32.0); Mean Corpuscular Hgb Conc. 32.9 g/dL (32.0-36.0); Mean Corpuscular Volume 87.8 fL (80.0-100.0); Monocytes # (auto) 0.4 10 ^3/uL (0-1.3); Neutrophils # (auto) 3.6 10 ^3/uL (1.6-8.6); Neutrophils % (auto) 71.9 % (37.0-80.0); Nucleated Red Blood Cells % 0.1 %; Red Cell Distribution Width 16.1 % (11.8-14.3); White Blood Cell 4.9 10^3/uL (4.4-10.8)
[2023-04-15 09:02] LABS: Creatinine, Urine 73.58 mg/dL (30.0-125.0)
[2023-04-15 09:04] LABS: Prostate Specific Antigen 1.27 ng/mL (0.0-4.0)
[2023-04-15 09:05] LABS: Albumin 4.3 g/dL (3.2-4.8); Alkaline Phosphatase 36 U/L (46-116); Anion Gap 6 (5-15); Aspartate Aminotransferase 13 U/L (13-40); BUN/Creatinine Ratio 11.3 (10.0-20.0); Blood Urea Nitrogen 12 mg/dL (9-23); Calcium 9.1 mg/dL (8.5-10.1); Carbon Dioxide 27 mmol/L (20-30); Chloride 108 mmol/L (98-107); Cholesterol 129 mg/dL (< 200); Glucose 116 mg/dL (74-106); HDL Cholesterol 37 mg/dL (40-59); LDL Cholesterol 75 mg/dL (< 100); Potassium 4.2 mmol/L (3.5-5.1); Sodium 141 mmol/L (136-145); Triglycerides 92 mg/dL (< 150)
[2023-04-15 09:06] LABS: Bilirubin, Total 0.8 mg/dL (0.2-1.0)
[2023-04-15 09:08] LABS: Free T4 (Free Thyroxine) 1.21 ng/dL (0.89-1.76)
[2023-04-15 09:10] LABS: Alanine Aminotransferase 9 U/L (7-40)
== END | disposition home or self-care (01) ==
LOC: LAB 08:16
DX: E11.39 Type 2 diabetes mellitus with other diabetic ophthalmic complication (principal); R35.1 Nocturia; I25.5 Ischemic cardiomyopathy
CPT/HCPCS: 36415; 80053; 80061; 82043; 82570; 83036; 84153; 84439; 84443; 85025

== ENCOUNTER 2023-06-04 23:53 | Inpatient (IN) | payer OTHER ==
[~2023-06-04] VITALS: Ht 182.9 cm; Wt 72.1 kg
[2023-06-05] VITALS (7 sets, daily range): BP systolic 101–117; BP diastolic 56–71; PULSE 69–134; RESP 16–19; TEMP 98–99.6; O2SAT 94–97
[2023-06-05] MEDS ORDERED: ACETAMINOPHEN 325 MG TAB PO PRN (03:30)
[2023-06-05] MEDS ORDERED: MORPHINE SULFATE INJ 2 MG/ml SYRG IV PRN (03:30)
[2023-06-05] MEDS ORDERED: NITROGLYCERIN 0.4 MG SL TAB SL PRN (03:30)
[2023-06-05] MEDS ORDERED: ONDANSETRON HCL 4 MG/2 ML VIAL IV PRN (03:30)
[2023-06-05] MEDS ORDERED: DEXTROSE (50%) 50ML SYRG IV PRN (03:30)
[2023-06-05 06:15] LABS: Basophils # (auto) 0 10 ^3/uL (0-0.2); Basophils % (auto) 0.2 % (0.0-2.0); Eosinophils # (auto) 0 10 ^3/uL (0-0.8); Hematocrit 38.4 % (41.0-53.0); Hemoglobin 12.7 g/dL (13.5-17.5); Lymphocytes # (auto) 0.6 10 ^3/uL (0.4-5.4); Lymphocytes % (auto) 8.5 % (10.0-50.0); Mean Corpuscular Hemoglobin 29.3 pg (28.0-32.0); Mean Corpuscular Hgb Conc. 33.2 g/dL (32.0-36.0); Mean Corpuscular Volume 88.3 fL (80.0-100.0); Monocytes # (auto) 0.5 10 ^3/uL (0-1.3); Monocytes % (auto) 7.7 % (0.0-12.0); Neutrophils % (auto) 83.6 % (37.0-80.0); Red Blood Cells 4.35 10^6/uL (4.5-5.90); Red Cell Distribution Width 14.6 % (11.8-14.3); White Blood Cell 7.1 10^3/uL (4.4-10.8)
[2023-06-05] MEDS: ACCU-CHEK COMFORT CURVE STRIP VI SCH ×4 (06:18→22:52)
[2023-06-05] MEDS: InsuLIN REG 1unit/0.01ml Soln (100units/ml) SC SCH ×4 (06:19→22:57)
[2023-06-05 06:27] LABS: Albumin 3.9 g/dL (3.2-4.8); Alkaline Phosphatase 41 U/L (46-116); Anion Gap 11 (5-15); Aspartate Aminotransferase 12 U/L (13-40); BUN/Creatinine Ratio 9.2 (10.0-20.0); Bilirubin, Total 0.9 mg/dL (0.2-1.0); Blood Urea Nitrogen 10 mg/dL (9-23); Carbon Dioxide 23 mmol/L (20-30); Chloride 102 mmol/L (98-107); Glucose 248 mg/dL (74-106); Potassium 3.6 mmol/L (3.5-5.1); Sodium 136 mmol/L (136-145); Total Protein 6.4 g/dL (5.7-8.2)
[2023-06-05 06:38] LABS: Alanine Aminotransferase < 9 U/L (7-40)
[2023-06-05 08:29] LABS: Urine Bacteria NONE SEEN /hpf (None Seen); Urine Blood 1+ /uL (Negative); Urine Clarity Clear (Clear); Urine Color Yellow (Yellow); Urine Hyaline Cast FEW /lpf (0 - 2); Urine Mucus FEW (None Seen); Urine Protein, UAD 2+ (Negative); Urine Specific Gravity 1.018 (1.001-1.035); Urine Urobilinogen Normal (Negative); Urine WBC 2 /hpf (0 - 3)
[2023-06-05 09:26] LABS: Triglycerides 54 mg/dL (< 150)
[2023-06-05 09:27] LABS: LDL Cholesterol 87 mg/dL (< 100)
[2023-06-05 09:28] LABS: Cholesterol 133 mg/dL (< 200); HDL Cholesterol 43 mg/dL (40-59)
[2023-06-05] MEDS: METOPROLOL SUCCINATE XL 50 MG TAB PO SCH (10:00)
[2023-06-05] MEDS: SACUBITRIL-VALSARTAN 24mg/26mg TAB PO SCH ×2 (10:00→22:51)
[2023-06-05] MEDS: ASPirin 81 mg TAB PO SCH (10:48)
[2023-06-05] MEDS: ENOXAPARIN SOD 40 MG/0.4 ML SYRINGE SC SCH (10:48)
[2023-06-05] MEDS: AMIODARONE HCL 200 MG TAB PO SCH (10:49)
[2023-06-05 13:51] LABS: % Iron Saturation 20.4 % (20-55)
[2023-06-05 13:54] LABS: INR 1.19 (0.9-1.15); Partial Thromboplastin Time 27.6 SEC (24.5-34.5); Prothrombin Time 12.4 sec (9.3-11.8)
[2023-06-05] MEDS ORDERED: FERROUS SULFATE 325mg EC TAB PO SCH (18:15)
[2023-06-05] MEDS: ATORVASTATIN 20 MG TAB PO SCH (22:57)
[2023-06-06 05:17] VITALS: BP 104/65; PULSE 68; RESP 19; TEMP 98.4; O2SAT 97
[2023-06-06 06:07] LABS: Basophils # (auto) 0 10 ^3/uL (0-0.2); Basophils % (auto) 0.9 % (0.0-2.0); Eosinophils # (auto) 0.1 10 ^3/uL (0-0.8); Hematocrit 38.9 % (41.0-53.0); Lymphocytes # (auto) 0.8 10 ^3/uL (0.4-5.4); Lymphocytes % (auto) 18.5 % (10.0-50.0); Mean Corpuscular Hemoglobin 29.4 pg (28.0-32.0); Mean Corpuscular Hgb Conc. 33.4 g/dL (32.0-36.0); Monocytes # (auto) 0.5 10 ^3/uL (0-1.3); Monocytes % (auto) 12.8 % (0.0-12.0); Neutrophils # (auto) 2.8 10 ^3/uL (1.6-8.6); Neutrophils % (auto) 65.8 % (37.0-80.0); Nucleated Red Blood Cells % 0.1 %; Red Blood Cells 4.42 10^6/uL (4.5-5.90); Red Cell Distribution Width 14.6 % (11.8-14.3); White Blood Cell 4.3 10^3/uL (4.4-10.8)
[2023-06-06] MEDS: ACCU-CHEK COMFORT CURVE STRIP VI SCH ×4 (06:07→21:08)
[2023-06-06] MEDS: InsuLIN REG 1unit/0.01ml Soln (100units/ml) SC SCH ×4 (06:07→21:09)
[2023-06-06 06:17] LABS: Anion Gap 7 (5-15); Calcium 8.9 mg/dL (8.5-10.1); Carbon Dioxide 28 mmol/L (20-30); Chloride 103 mmol/L (98-107); Potassium 3.7 mmol/L (3.5-5.1); Sodium 138 mmol/L (136-145)
[2023-06-06 06:23] LABS: BUN/Creatinine Ratio 12.2 (10.0-20.0); Blood Urea Nitrogen 18 mg/dL (9-23)
[2023-06-06] MEDS ORDERED: CYCLOBENZAPRINE HCL 10 MG TAB ONE (06:26)
[2023-06-06 06:28] LABS: Glucose 108 mg/dL (74-106)
[2023-06-06 08:00] VITALS: PULSE 75; RESP 18
[2023-06-06 08:06] LABS: PSA Free 0.62 ng/mL; Prostate Specific Antigen 1.6 ng/mL (0.0-4.0)
[2023-06-06] MEDS: ENOXAPARIN SOD 40 MG/0.4 ML SYRINGE SC SCH (10:00)
[2023-06-06] MEDS: ASPirin 81 mg TAB PO SCH (10:01)
[2023-06-06] MEDS: SACUBITRIL-VALSARTAN 24mg/26mg TAB PO SCH ×2 (10:01→21:20)
[2023-06-06] MEDS: METOPROLOL SUCCINATE XL 50 MG TAB PO SCH (10:01)
[2023-06-06] MEDS: AMIODARONE HCL 200 MG TAB PO SCH (10:01)
[2023-06-06] MEDS ORDERED: OPTISON 3ml Vial for INJ IV ONE (10:06)
[2023-06-06 13:05] VITALS: BP 122/68; PULSE 78; RESP 17; TEMP 98.2; O2SAT 97
[2023-06-06 15:08] LABS: Base Excess 0.2 mmol/L (-2.0-2.0)
[2023-06-06 17:00] VITALS: BP 107/64; PULSE 68; RESP 18; TEMP 98.2; O2SAT 96
[2023-06-06 20:00] VITALS: PULSE 66
[2023-06-06] MEDS: ATORVASTATIN 20 MG TAB PO SCH (21:04)
[2023-06-06 23:07] VITALS: BP 121/68; PULSE 68; RESP 18; TEMP 97.5; O2SAT 98
[2023-06-07] VITALS (7 sets, daily range): BP systolic 130–141; BP diastolic 56–89; PULSE 68–94; RESP 18; TEMP 36.4; O2SAT 96–97
[2023-06-07] MEDS: ACCU-CHEK COMFORT CURVE STRIP VI SCH ×2 (06:12→11:30)
[2023-06-07] MEDS: InsuLIN REG 1unit/0.01ml Soln (100units/ml) SC SCH ×2 (06:12→11:30)
[2023-06-07 07:04] LABS: Anion Gap 8 (5-15); Carbon Dioxide 28 mmol/L (20-30); Chloride 104 mmol/L (98-107); Potassium 4.4 mmol/L (3.5-5.1); Sodium 140 mmol/L (136-145)
[2023-06-07 07:05] LABS: Calcium 9.5 mg/dL (8.5-10.1)
[2023-06-07 07:10] LABS: BUN/Creatinine Ratio 13.6 (10.0-20.0); Basophils # (auto) 0.1 10 ^3/uL (0-0.2); Basophils % (auto) 0.9 % (0.0-2.0); Blood Urea Nitrogen 18 mg/dL (9-23); Eosinophils # (auto) 0.1 10 ^3/uL (0-0.8); Eosinophils % (auto) 1.1 % (0.0-7.0); Glucose 119 mg/dL (74-106); Hematocrit 41.9 % (41.0-53.0); Hemoglobin 14.1 g/dL (13.5-17.5); Lymphocytes # (auto) 0.9 10 ^3/uL (0.4-5.4); Lymphocytes % (auto) 15.4 % (10.0-50.0); Mean Corpuscular Hemoglobin 29.7 pg (28.0-32.0); Mean Corpuscular Hgb Conc. 33.7 g/dL (32.0-36.0); Mean Corpuscular Volume 88.1 fL (80.0-100.0); Monocytes # (auto) 0.6 10 ^3/uL (0-1.3); Monocytes % (auto) 9.9 % (0.0-12.0); Neutrophils # (auto) 4.4 10 ^3/uL (1.6-8.6); Neutrophils % (auto) 72.7 % (37.0-80.0); Nucleated Red Blood Cells % 0.2 %; Red Blood Cells 4.75 10^6/uL (4.5-5.90); Red Cell Distribution Width 14.6 % (11.8-14.3)
[2023-06-07] MEDS: SACUBITRIL-VALSARTAN 24mg/26mg TAB PO SCH (09:53)
[2023-06-07] MEDS: ENOXAPARIN SOD 40 MG/0.4 ML SYRINGE SC SCH (09:53)
[2023-06-07] MEDS: ASPirin 81 mg TAB PO SCH (09:53)
[2023-06-07] MEDS: AMIODARONE HCL 200 MG TAB PO SCH (09:53)
[2023-06-07] MEDS: METOPROLOL SUCCINATE XL 50 MG TAB PO SCH (09:54)
== END 2023-06-07 16:03 | disposition home or self-care (01) | DRG 70 ==
LOC: TELE-WESTW 06-05 01:30 → WEST WING 06-06 09:02 → TELE-WESTW 06-06 09:09
PROVIDERS: ADMIT Internal Medicine; ATTEND Internal Medicine
DX: G93.41 Metabolic encephalopathy (principal); I21.A1 Myocardial infarction type 2; N17.0 Acute kidney failure with tubular necrosis; I50.20 Unspecified systolic (congestive) heart failure; I11.0 Hypertensive heart disease with heart failure; E11.51 Type 2 diabetes mellitus with diabetic peripheral angiopathy without gangrene; E11.65 Type 2 diabetes mellitus with hyperglycemia; I25.10 Atherosclerotic heart disease of native coronary artery without angina pectoris; R80.9 Proteinuria, unspecified; N28.9 Disorder of kidney and ureter, unspecified; I25.5 Ischemic cardiomyopathy; Z95.5 Presence of coronary angioplasty implant and graft; Z91.199 Patient's noncompliance with other medical treatment and regimen due to unspecified reason; Z95.0 Presence of cardiac pacemaker
CPT/HCPCS: 36415; 36600; 70450; 80048; 80053; 80061; 81001; 82043; 82306; 82805; 82962; 83036; 83540; 83550; 84154; 84439; 84443; 84484; 85025; 85610; 85730; 87040; 93306; 93886; G0378; J1815; Q9956

== ENCOUNTER 2023-11-02 12:16 | Inpatient (IN) | payer OTHER ==
[~2023-11-02] VITALS: Ht 182.9 cm; Wt 82.0 kg
[~2023-11-02 12:16] MED LIST changes: -METF500T PO
[2023-11-02 12:41] LABS: Basophils # (auto) 0.1 10 ^3/uL (0-0.2); Basophils % (auto) 1.4 % (0.0-2.0); Eosinophils # (auto) 0.1 10 ^3/uL (0-0.8); Eosinophils % (auto) 3.2 % (0.0-7.0); Hematocrit 39.7 % (41.0-53.0); Hemoglobin 12.5 g/dL (13.5-17.5); Lymphocytes # (auto) 0.6 10 ^3/uL (0.4-5.4); Mean Corpuscular Hemoglobin 27.1 pg (28.0-32.0); Mean Corpuscular Hgb Conc. 31.5 g/dL (32.0-36.0); Mean Corpuscular Volume 85.9 fL (80.0-100.0); Monocytes # (auto) 0.5 10 ^3/uL (0-1.3); Monocytes % (auto) 11.6 % (0.0-12.0); Neutrophils % (auto) 69.8 % (37.0-80.0); Nucleated Red Blood Cells % 0.1 %; Red Blood Cells 4.62 10^6/uL (4.5-5.90); Red Cell Distribution Width 15.5 % (11.8-14.3); White Blood Cell 4.3 10^3/uL (4.4-10.8)
[2023-11-02 12:50] LABS: Chloride 104 mmol/L (98-107); Potassium 3.7 mmol/L (3.5-5.1); Sodium 136 mmol/L (136-145)
[2023-11-02 12:51] LABS: Anion Gap 8 (5-15); Calcium 8.8 mg/dL (8.5-10.1); Carbon Dioxide 24 mmol/L (20-30)
[2023-11-02 12:56] LABS: BUN/Creatinine Ratio 12.9 (10.0-20.0); Blood Urea Nitrogen 16 mg/dL (9-23); Glucose 305 mg/dL (74-106)
[2023-11-02] MEDS: SODIUM CHLORIDE 0.9% 1,000 ML IV ONE (13:30)
[2023-11-02] MEDS: InsuLIN REG 1unit/0.01ml Soln (100units/ml) IV ONE (13:30)
[2023-11-02 18:51] VITALS: PULSE 86; RESP 20; O2SAT 97
[2023-11-02 20:00] VITALS: TEMP 98.3; O2SAT 96
[2023-11-02 21:15] LABS: Urine Bacteria None Seen /hpf (None Seen)
[2023-11-02 21:38] LABS: Urine Blood 1+ /uL (Negative); Urine Clarity Clear (Clear); Urine Color Yellow (Yellow); Urine Mucus FEW (None Seen); Urine Protein, UAD 3+ (Negative); Urine Specific Gravity 1.023 (1.001-1.035); Urine Urobilinogen Normal (Negative); Urine WBC 2 /hpf (0 - 3)
[2023-11-02 22:00] VITALS: BP 154/110; PULSE 100; RESP 16
[2023-11-02] MEDS ORDERED: DEXTROSE (50%) 50ML SYRG IV PRN (22:15)
[2023-11-02] MEDS ORDERED: ACETAMINOPHEN 325 MG TAB PO PRN (22:15)
[2023-11-02] MEDS: BRIMONIDINE 0.2% OPTH Soln 5ml EACHEYE ONE (23:11)
[2023-11-03] MEDS ORDERED: InsuLIN REG 1unit/0.01ml Soln (100units/ml) SC SCH
[2023-11-03] MEDS ORDERED: ACCU-CHEK COMFORT CURVE STRIP VI SCH
[2023-11-03] MEDS ORDERED: CARVEDILOL 3.125 MG TAB PO SCH (10:00)
[2023-11-03] MEDS ORDERED: ENOXAPARIN SOD 40 MG/0.4 ML SYRINGE SC SCH (10:00)
[2023-11-03] MEDS ORDERED: BRIMONIDINE 0.2% OPTH Soln 5ml EACHEYE SCH (10:00)
[2023-11-03] MEDS ORDERED: AMIODARONE HCL 200 MG TAB PO SCH (10:00)
[2023-11-03] MEDS ORDERED: ATORVASTATIN 20 MG TAB PO SCH (22:00)
== END 2023-11-02 23:35 | disposition left against medical advice (07) | DRG 69 ==
LOC: EDBD 12:16 → ER 12:16 → OVERFLOW 22:22
PROVIDERS: ADMIT Internal Medicine; ATTEND Internal Medicine
DX: G45.9 Transient cerebral ischemic attack, unspecified (principal); E11.65 Type 2 diabetes mellitus with hyperglycemia; K21.9 Gastro-esophageal reflux disease without esophagitis; Z53.29 Procedure and treatment not carried out because of patient's decision for other reasons; E78.5 Hyperlipidemia, unspecified; I10 Essential (primary) hypertension; H53.8 Other visual disturbances; I25.2 Old myocardial infarction; Z87.891 Personal history of nicotine dependence; Z95.0 Presence of cardiac pacemaker; Z89.512 Acquired absence of left leg below knee
CPT/HCPCS: 36415; 70450; 80048; 81001; 82962; 84484; 85025; 96361; 96374; G0378; J1815

== ENCOUNTER 2023-12-25 09:29 | Inpatient (IN) | payer OTHER ==
[~2023-12-25] VITALS: Ht 182.9 cm; Wt 86.0 kg
[2023-12-25 09:42] VITALS: PULSE 130; RESP 16; O2SAT 97
[2023-12-25 10:02] LABS: Basophils # (auto) 0 10 ^3/uL (0-0.2); Eosinophils # (auto) 0.1 10 ^3/uL (0-0.8); Eosinophils % (auto) 1.7 % (0.0-7.0); Hematocrit 43.9 % (41.0-53.0); Lymphocytes # (auto) 0.6 10 ^3/uL (0.4-5.4); Lymphocytes % (auto) 14.8 % (10.0-50.0); Mean Corpuscular Hemoglobin 26.1 pg (28.0-32.0); Mean Corpuscular Hgb Conc. 31.9 g/dL (32.0-36.0); Monocytes # (auto) 0.5 10 ^3/uL (0-1.3); Monocytes % (auto) 10.6 % (0.0-12.0); Neutrophils # (auto) 3.1 10 ^3/uL (1.6-8.6); Neutrophils % (auto) 71.9 % (37.0-80.0); Nucleated Red Blood Cells % 0.1 %; Red Blood Cells 5.36 10^6/uL (4.5-5.90); Red Cell Distribution Width 17.6 % (11.8-14.3); White Blood Cell 4.3 10^3/uL (4.4-10.8)
[2023-12-25] MEDS: SODIUM CHLORIDE 0.9% 1,000 ML IV ONE ×2 (10:08→18:00)
[2023-12-25 10:13] LABS: Chloride 110 mmol/L (98-107); Potassium 5.2 mmol/L (3.5-5.1); Sodium 138 mmol/L (136-145)
[2023-12-25 10:14] LABS: Anion Gap 10 (5-15); Calcium 9.4 mg/dL (8.5-10.1); Carbon Dioxide 18 mmol/L (20-30)
[2023-12-25 10:19] LABS: BUN/Creatinine Ratio 20.7 (10.0-20.0); Blood Urea Nitrogen 36 mg/dL (9-23); Glucose 103 mg/dL (74-106)
[2023-12-25] MEDS: AMIODARONE BOLUS KIT 100 ML IV ONE (10:49)
[2023-12-25 11:16] LABS: Urine Bacteria None Seen /hpf (None Seen)
[2023-12-25] MEDS: AMIODARONE 450mg/250ml AE 250 ML IV SCH ×2 (11:41→20:50)
[2023-12-25 12:13] LABS: Urine Blood Negative /uL (Negative); Urine Clarity Clear (Clear); Urine Color Yellow (Yellow); Urine Protein, UAD TRACE (Negative); Urine Specific Gravity 1.024 (1.001-1.035); Urine Urobilinogen Normal (Negative); Urine WBC 1 /hpf (0 - 3)
[2023-12-25] MEDS ORDERED: MORPHINE SULFATE 4 MG/ML SYR/VIAL IV PRN (12:30)
[2023-12-25] MEDS ORDERED: ONDANSETRON HCL 4 MG/2 ML VIAL IV PRN (12:30)
[2023-12-25] MEDS ORDERED: NITROGLYCERIN 0.4 MG SL TAB SL PRN ×2 (12:30)
[2023-12-25] MEDS ORDERED: MORPHINE SULFATE INJ 2 MG/ml SYRG IV PRN (12:30)
[2023-12-25] MEDS ORDERED: ACETAMINOPHEN 325 MG TAB PO PRN (12:30)
[2023-12-25] MEDS: METOPROLOL TARTRATE 1MG/1ML-5ML VIAL IV ONE (13:15)
[2023-12-25 13:30] LABS: INR 1.41 (0.9-1.15); Prothrombin Time 14.6 sec (9.3-11.8)
[2023-12-25] MEDS: BRIMONIDINE 0.2% OPTH Soln 5ml EACHEYE SCH (15:11)
[2023-12-25 16:34] VITALS: BP 102/79; PULSE 79; RESP 16; TEMP 97.4; O2SAT 96
[2023-12-25] MEDS ORDERED: ATOR10TA PO (17:41)
[2023-12-25] MEDS ORDERED: EMPA1TAB3 PO (17:41)
[2023-12-25] MEDS ORDERED: METF-929 PO (17:41)
[2023-12-25] MEDS: ENOXAPARIN SOD 40 MG/0.4 ML SYRINGE SC ONE (19:21)
[2023-12-25 20:00] VITALS: PULSE 75
[2023-12-25 21:00] VITALS: BP 117/68; PULSE 75; RESP 17; TEMP 97.3; O2SAT 96
[2023-12-25] MEDS: ATORVASTATIN 20 MG TAB PO SCH (22:23)
[2023-12-25] MEDS: CARVEDILOL 3.125 MG TAB PO SCH (22:25)
[2023-12-26] VITALS (8 sets, daily range): BP systolic 103–128; BP diastolic 66–92; PULSE 74–78; RESP 17–20; TEMP 97.3–97.7; O2SAT 95–98
[2023-12-26 07:14] LABS: Basophils # (auto) 0 10 ^3/uL (0-0.2); Basophils % (auto) 1.2 % (0.0-2.0); Eosinophils # (auto) 0.1 10 ^3/uL (0-0.8); Eosinophils % (auto) 1.5 % (0.0-7.0); Hematocrit 39.1 % (41.0-53.0); Hemoglobin 12.4 g/dL (13.5-17.5); Lymphocytes # (auto) 0.6 10 ^3/uL (0.4-5.4); Lymphocytes % (auto) 15.6 % (10.0-50.0); Mean Corpuscular Hemoglobin 26.4 pg (28.0-32.0); Mean Corpuscular Hgb Conc. 31.6 g/dL (32.0-36.0); Mean Corpuscular Volume 83.5 fL (80.0-100.0); Monocytes # (auto) 0.5 10 ^3/uL (0-1.3); Neutrophils # (auto) 2.6 10 ^3/uL (1.6-8.6); Neutrophils % (auto) 68.7 % (37.0-80.0); Nucleated Red Blood Cells % 0.3 %; Red Blood Cells 4.69 10^6/uL (4.5-5.90); Red Cell Distribution Width 17.9 % (11.8-14.3); White Blood Cell 3.8 10^3/uL (4.4-10.8)
[2023-12-26 07:35] LABS: Alanine Aminotransferase 13 U/L (7-40); Albumin 3.2 g/dL (3.2-4.8); Alkaline Phosphatase 38 U/L (46-116); Anion Gap 9 (5-15); Aspartate Aminotransferase 10 U/L (13-40); BUN/Creatinine Ratio 19.5 (10.0-20.0); Bilirubin, Total 0.8 mg/dL (0.2-1.0); Calcium 8.5 mg/dL (8.5-10.1); Carbon Dioxide 15 mmol/L (20-30); Chloride 114 mmol/L (98-107); Glucose 118 mg/dL (74-106); Potassium 5.1 mmol/L (3.5-5.1); Sodium 138 mmol/L (136-145); Total Protein 5.3 g/dL (5.7-8.2)
[2023-12-26 07:47] LABS: Blood Urea Nitrogen 25 mg/dL (9-23)
[2023-12-26] MEDS ORDERED: ASPirin 81 mg TAB PO SCH (10:00)
[2023-12-26] MEDS: ENOXAPARIN SOD 40 MG/0.4 ML SYRINGE SC SCH (10:02)
[2023-12-26] MEDS: ASPirin-EC 81 mg tab PO SCH (10:02)
[2023-12-26] MEDS: DOCUSATE SOD 100 MG CAP PO SCH (10:02)
[2023-12-26] MEDS: SACUBITRIL-VALSARTAN 24mg/26mg TAB PO SCH (10:03)
[2023-12-26] MEDS: EMPAGLIFLOZIN 10 MG TAB PO SCH (10:05)
[2023-12-26] MEDS: AMIODARONE HCL 200 MG TAB PO SCH (10:05)
[2023-12-26] MEDS: APIXABAN 5 MG TAB PO ONE (12:05)
[2023-12-26] MEDS: FUROSEMIDE 40 MG/4 ML VIAL IV ONE (12:08)
[2023-12-26] MEDS ORDERED: DORZ2SOL18 EACHEYE (12:11)
[2023-12-26] MEDS: MAGNESIUM SULFATE 1GM/100ML 100 ML IV ONE (13:53)
[2023-12-26] MEDS: FUROSEMIDE 40 MG/4 ML VIAL IV SCH (17:22)
[2023-12-26] MEDS: APIXABAN 5 MG TAB PO SCH (21:05)
[2023-12-27] VITALS (7 sets, daily range): BP systolic 82–114; BP diastolic 58–72; PULSE 72–77; RESP 17–18; TEMP 97.3–98; O2SAT 95–99
[2023-12-27 07:02] LABS: Basophils # (auto) 0 10 ^3/uL (0-0.2); Basophils % (auto) 1.2 % (0.0-2.0); Eosinophils # (auto) 0.1 10 ^3/uL (0-0.8); Eosinophils % (auto) 1.7 % (0.0-7.0); Hematocrit 44.9 % (41.0-53.0); Lymphocytes # (auto) 0.5 10 ^3/uL (0.4-5.4); Lymphocytes % (auto) 11.3 % (10.0-50.0); Mean Corpuscular Hemoglobin 27.1 pg (28.0-32.0); Mean Corpuscular Hgb Conc. 33.4 g/dL (32.0-36.0); Mean Corpuscular Volume 81.1 fL (80.0-100.0); Monocytes # (auto) 0.4 10 ^3/uL (0-1.3); Monocytes % (auto) 10.2 % (0.0-12.0); Neutrophils # (auto) 3.1 10 ^3/uL (1.6-8.6); Neutrophils % (auto) 75.6 % (37.0-80.0); Nucleated Red Blood Cells % 0.1 %; Red Blood Cells 5.53 10^6/uL (4.5-5.90); Red Cell Distribution Width 17.6 % (11.8-14.3); White Blood Cell 4.1 10^3/uL (4.4-10.8)
[2023-12-27 07:16] LABS: Anion Gap 10 (5-15); Carbon Dioxide 20 mmol/L (20-30); Chloride 106 mmol/L (98-107); Potassium 4.2 mmol/L (3.5-5.1); Sodium 136 mmol/L (136-145)
[2023-12-27 07:18] LABS: Calcium 9.3 mg/dL (8.7-10.4)
[2023-12-27 07:22] LABS: BUN/Creatinine Ratio 15.7 (10.0-20.0); Blood Urea Nitrogen 22 mg/dL (9-23); Glucose 131 mg/dL (74-106)
[2023-12-27 07:23] LABS: Magnesium 1.6 mg/dL (1.6-2.6)
[2023-12-27] MEDS: CLOPIDOGREL BISULFATE 75 MG TAB PO SCH (12:11)
[2023-12-28] VITALS (8 sets, daily range): BP systolic 88–114; BP diastolic 57–72; PULSE 71–78; RESP 17–19; TEMP 97.5–98; O2SAT 93–98
[2023-12-28 06:40] LABS: Eosinophils # (auto) 0.1 10 ^3/uL (0-0.8)
[2023-12-28 06:44] LABS: Basophils # (auto) 0 10 ^3/uL (0-0.2); Basophils % (auto) 0.9 % (0.0-2.0); Eosinophils % (auto) 2.8 % (0.0-7.0); Hematocrit 44.8 % (41.0-53.0); Hemoglobin 14.9 g/dL (13.5-17.5); Lymphocytes # (auto) 0.6 10 ^3/uL (0.4-5.4); Lymphocytes % (auto) 15.3 % (10.0-50.0); Mean Corpuscular Hemoglobin 26.7 pg (28.0-32.0); Mean Corpuscular Hgb Conc. 33.2 g/dL (32.0-36.0); Mean Corpuscular Volume 80.6 fL (80.0-100.0); Monocytes # (auto) 0.6 10 ^3/uL (0-1.3); Monocytes % (auto) 13.6 % (0.0-12.0); Neutrophils # (auto) 2.8 10 ^3/uL (1.6-8.6); Neutrophils % (auto) 67.4 % (37.0-80.0); Nucleated Red Blood Cells % 0.2 %; Red Blood Cells 5.56 10^6/uL (4.5-5.90); Red Cell Distribution Width 17.5 % (11.8-14.3); White Blood Cell 4.1 10^3/uL (4.4-10.8)
[2023-12-28 07:22] LABS: Alanine Aminotransferase 13 U/L (7-40); Albumin 3.8 g/dL (3.2-4.8); Alkaline Phosphatase 47 U/L (46-116); Anion Gap 12 (5-15); Aspartate Aminotransferase 14 U/L (13-40); BUN/Creatinine Ratio 15.8 (10.0-20.0); Blood Urea Nitrogen 21 mg/dL (9-23); Calcium 9.5 mg/dL (8.7-10.4); Carbon Dioxide 21 mmol/L (20-30); Chloride 104 mmol/L (98-107); Glucose 105 mg/dL (74-106); Potassium 3.9 mmol/L (3.5-5.1); Sodium 137 mmol/L (136-145); Total Protein 6.5 g/dL (5.7-8.2)
[2023-12-29] VITALS (8 sets, daily range): BP systolic 91–131; BP diastolic 49–86; PULSE 75–90; RESP 16–19; TEMP 36.4; O2SAT 96–99
[2023-12-29] MEDS ORDERED: AMIO200T13 PO (15:05)
[2023-12-29] MEDS ORDERED: SACU1TAB PO (15:05)
[2023-12-29] MEDS ORDERED: APIX5TAB PO (15:05)
== END 2023-12-29 19:04 | disposition home or self-care (01) | DRG 315 ==
LOC: EDBD 09:29 → ER 09:29 → TELE 12:56 → TELE-EAST 15:48 → TELE-CENTR 18:05
PROVIDERS: ADMIT Nurse Practitioner Family; ATTEND Internal Medicine
PROC: 4B02XTZ Measurement of Cardiac Defibrillator, External Approach (ICD-10-PCS; principal; 2023-12-26)
DX: T82.118A Breakdown (mechanical) of other cardiac electronic device, initial encounter (principal); I13.0 Hypertensive heart and chronic kidney disease with heart failure and stage 1 through stage 4 chronic kidney disease, or unspecified chronic kidney disease; I50.22 Chronic systolic (congestive) heart failure; N17.9 Acute kidney failure, unspecified; E87.6 Hypokalemia; I25.2 Old myocardial infarction; E11.22 Type 2 diabetes mellitus with diabetic chronic kidney disease; E11.51 Type 2 diabetes mellitus with diabetic peripheral angiopathy without gangrene; I25.5 Ischemic cardiomyopathy; N18.30 Chronic kidney disease, stage 3 unspecified; K21.9 Gastro-esophageal reflux disease without esophagitis; E78.5 Hyperlipidemia, unspecified; G24.9 Dystonia, unspecified; I27.20 Pulmonary hypertension, unspecified; I08.3 Combined rheumatic disorders of mitral, aortic and tricuspid valves; Z79.84 Long term (current) use of oral hypoglycemic drugs; Z89.512 Acquired absence of left leg below knee; Z86.73 Personal history of transient ischemic attack (TIA), and cerebral infarction without residual deficits; Z83.3 Family history of diabetes mellitus; Z82.49 Family history of ischemic heart disease and other diseases of the circulatory system; Z82.3 Family history of stroke; Z82.0 Family history of epilepsy and other diseases of the nervous system; Z98.61 Coronary angioplasty status; Z95.810 Presence of automatic (implantable) cardiac defibrillator; Z87.891 Personal history of nicotine dependence; Y84.8 Other medical procedures as the cause of abnormal reaction of the patient, or of later complication, without mention of misadventure at the time of the procedure; Y92.89 Other specified places as the place of occurrence of the external cause
CPT/HCPCS: 36415; 70450; 71045; 80048; 80053; 81001; 83036; 83735; 83880; 84132; 84484; 85025; 85610; 93005; 93306; 97163; 99291; G0378

== ENCOUNTER → 2024-02-02 | Outpatient (CLI) | payer OTHER ==
[~2024-02-02] MED LIST changes: +APIX5TAB PO; +ATOR10TA PO; -DAPA1TAB4 PO; +DORZ2SOL18 EACHEYE; +EMPA1TAB3 PO; +METF-929 PO; -SACU1TAB PO
[2024-02-02 12:00] VITALS: BP 142/77; PULSE 76; RESP 16; O2SAT 97
[2024-02-02 12:10] VITALS: BP 125/72; PULSE 75; RESP 16; O2SAT 97
== END | disposition home or self-care (01) ==
LOC: Rad HDHVI 11:51
PROVIDERS: ATTEND Internal Medicine Cardiovascular Disease
DX: Z01.818 Encounter for other preprocedural examination (principal); I25.5 Ischemic cardiomyopathy; R07.9 Chest pain, unspecified
CPT/HCPCS: 71046; 93005; G0463

== ENCOUNTER 2024-02-05 06:45 | Day surgery (SDC) | payer OTHER ==
[2024-02-02 13:36] LABS: Basophils # (auto) 0.1 10 ^3/uL (0-0.2); Basophils % (auto) 1.4 % (0.0-2.0); Eosinophils # (auto) 0.1 10 ^3/uL (0-0.8); Eosinophils % (auto) 2.6 % (0.0-7.0); Hematocrit 39.5 % (41.0-53.0); Hemoglobin 13.1 g/dL (13.5-17.5); Lymphocytes # (auto) 0.6 10 ^3/uL (0.4-5.4); Lymphocytes % (auto) 13.6 % (10.0-50.0); Mean Corpuscular Hemoglobin 27.2 pg (28.0-32.0); Mean Corpuscular Hgb Conc. 33.1 g/dL (32.0-36.0); Monocytes # (auto) 0.4 10 ^3/uL (0-1.3); Monocytes % (auto) 11.1 % (0.0-12.0); Neutrophils # (auto) 2.9 10 ^3/uL (1.6-8.6); Neutrophils % (auto) 71.3 % (37.0-80.0); Platelet Count (auto) 202 10^3/uL (140-450); Red Blood Cells 4.82 10^6/uL (4.5-5.90); Red Cell Distribution Width 20.9 % (11.8-14.3); White Blood Cell 4.1 10^3/uL (4.4-10.8)
[2024-02-02 13:48] LABS: INR 1.14 (0.9-1.15); Partial Thromboplastin Time 29.7 SEC (24.5-34.5)
[2024-02-02 14:00] LABS: Chloride 106 mmol/L (98-107); Potassium 4.8 mmol/L (3.5-5.1); Sodium 139 mmol/L (136-145)
[2024-02-02 14:01] LABS: Anion Gap 6 (5-15); Calcium 9.5 mg/dL (8.7-10.4); Carbon Dioxide 27 mmol/L (20-30)
[2024-02-02 14:06] LABS: BUN/Creatinine Ratio 14.1 (10.0-20.0); Blood Urea Nitrogen 14 mg/dL (9-23); Glucose 110 mg/dL (74-106)
[2024-02-05] VITALS (8 sets, daily range): BP systolic 106–143; BP diastolic 63–87; PULSE 73–76; RESP 13–17; O2SAT 96–100
[~2024-02-05] VITALS: Ht 182.9 cm; Wt 79.4 kg
[2024-02-05] MEDS ORDERED: IOHEXOL 350 MG/ML 100ML IJ ONE (07:22)
[2024-02-05] MEDS ORDERED: HEPARIN IN NS 1000Units/500mL 1,500 ML ONE (07:22)
[2024-02-05] MEDS ORDERED: fentaNYL CITRATE 100 MCG/2 ML VL IV STA (07:43)
[2024-02-05] MEDS ORDERED: LIDOCAINE VISCOUS 2% 15ML UD MT STA (07:43)
[2024-02-05] MEDS ORDERED: MIDAZOLAM HCL 2MG/2ML 2ml VIAL (1mg/ml) IV STA (07:43)
== END 2024-02-05 11:03 | disposition home or self-care (01) ==
LOC: CATH 06:45
PROVIDERS: ATTEND Internal Medicine Cardiovascular Disease
DX: I25.5 Ischemic cardiomyopathy (principal); I74.8 Embolism and thrombosis of other arteries; Z87.891 Personal history of nicotine dependence; Z83.3 Family history of diabetes mellitus; Z82.49 Family history of ischemic heart disease and other diseases of the circulatory system; Z80.8 Family history of malignant neoplasm of other organs or systems; Z79.82 Long term (current) use of aspirin; Z79.899 Other long term (current) drug therapy; Z82.61 Family history of arthritis; Z82.3 Family history of stroke
CPT/HCPCS: 36415; 80048; 85025; 85610; 85730; 93312; J1644; J2250; Q9967; 99152

== ENCOUNTER → 2024-06-24 | Outpatient (CLI) | payer OTHER ==
[2024-06-24 09:45] LABS: Basophils # (auto) 0.1 10 ^3/uL (0-0.2); Basophils % (auto) 1.3 % (0.0-2.0); Eosinophils # (auto) 0.1 10 ^3/uL (0-0.8); Eosinophils % (auto) 2.6 % (0.0-7.0); Hematocrit 37.5 % (41.0-53.0); Hemoglobin 12.3 g/dL (13.5-17.5); Lymphocytes # (auto) 0.7 10 ^3/uL (0.4-5.4); Lymphocytes % (auto) 14.9 % (10.0-50.0); Mean Corpuscular Hemoglobin 30.6 pg (28.0-32.0); Mean Corpuscular Hgb Conc. 32.8 g/dL (32.0-36.0); Mean Corpuscular Volume 93.5 fL (80.0-100.0); Monocytes # (auto) 0.4 10 ^3/uL (0-1.3); Neutrophils # (auto) 3.5 10 ^3/uL (1.6-8.6); Neutrophils % (auto) 72.2 % (37.0-80.0); Nucleated Red Blood Cells % 0.1 %; Platelet Count (auto) 279 10^3/uL (140-450); Red Blood Cells 4.02 10^6/uL (4.5-5.90); Red Cell Distribution Width 15.7 % (11.8-14.3); White Blood Cell 4.9 10^3/uL (4.4-10.8)
[2024-06-24 10:03] LABS: Alanine Aminotransferase 15 U/L (7-40); Albumin 4.1 g/dL (3.2-4.8); Alkaline Phosphatase 51 U/L (46-116); Anion Gap 8 (5-15); Aspartate Aminotransferase 16 U/L (13-40); BUN/Creatinine Ratio 19.8 (10.0-20.0); Blood Urea Nitrogen 22 mg/dL (9-23); Calcium 9.8 mg/dL (8.7-10.4); Carbon Dioxide 25 mmol/L (20-31); Chloride 106 mmol/L (98-107); Glucose 83 mg/dL (74-106); LDL Cholesterol 70 mg/dL (< 100); Potassium 4.7 mmol/L (3.5-5.1); Sodium 139 mmol/L (136-145); Triglycerides 94 mg/dL (< 150)
[2024-06-24 10:04] LABS: Bilirubin, Direct 0.2 mg/dL (<0.3); Bilirubin, Total 0.4 mg/dL (0.2-1.0); Cholesterol 118 mg/dL (< 200); Total Protein 7.2 g/dL (5.7-8.2)
[2024-06-24 10:19] LABS: HDL Cholesterol 35 mg/dL (40-59)
== END | disposition home or self-care (01) ==
LOC: LAB 09:01
PROVIDERS: ATTEND Internal Medicine Cardiovascular Disease
DX: I10 Essential (primary) hypertension (principal); E11.9 Type 2 diabetes mellitus without complications; C61 Malignant neoplasm of prostate; D51.3 Other dietary vitamin B12 deficiency anemia; E55.9 Vitamin D deficiency, unspecified; D64.9 Anemia, unspecified; R00.2 Palpitations; R53.1 Weakness; R30.0 Dysuria
CPT/HCPCS: 36415; 80053; 80061; 80076; 83036; 84403; 84439; 84443; 85025

== ENCOUNTER → 2024-09-20 | Outpatient (CLI) | payer OTHER ==
[2024-09-22 11:35] LABS: Creatinine, Urine 53.44 mg/dL (30.0-125.0)
== END | disposition home or self-care (01) ==
LOC: LAB 16:02
PROVIDERS: ATTEND Nurse Practitioner Family
DX: E03.9 Hypothyroidism, unspecified (principal); Z79.899 Other long term (current) drug therapy
CPT/HCPCS: 36415; 82043; 82570; 83036; 84153; 84443

== ENCOUNTER → 2024-11-26 | Outpatient (CLI) | payer OTHER | END | disposition home or self-care (01) | LOC: Rad HDHVI 09:50 | PROVIDERS: ATTEND Internal Medicine Cardiovascular Disease | DX: I77.819 Aortic ectasia, unspecified site (principal); E78.5 Hyperlipidemia, unspecified | CPT/HCPCS: 93306 ==

== ENCOUNTER 2025-01-10 13:38 | Emergency (ER) | payer OTHER ==
[~2025-01-10] VITALS: Ht 182.9 cm; Wt 85.0 kg
--- NOTE | 2025-01-10 13:56 | ED.PDOC ---
History of Present Illness HPI Comments 74-year-old male brought by paramedics from home because of back pain which started yesterday. He did slip from his bed landing on his low back a week ago. Has been fine since he fell. He does have a history of diabetes. Patient does move around with a wheelchair. Denies any back pain at the present moment. He states the pain is mostly on a moment. Denies any other symptoms. Chief Complaint: Back Pain Time Seen by MD: 13:49 Primary Care Provider: ? Reviewed Notes: Nurses Notes, Medications, Allergies Allergies: Coded Allergies: NO KNOWN ALLERGIES (Unverified , 02/02/24) Home Meds Active Scripts Apixaban Base (ELIQUIS) 5 Mg Tab, 5 MG PO BID for 30 Days, #60 TAB Prov:FARRAH SEBASTIAN MD 12/29/23 Amiodarone HCl (Amiodarone HCl) 200 Mg Tab, 200 MG PO Q12HR for 30 Days, #60 TAB Prov:FARRAH SEBASTIAN MD 12/29/23 Reported Medications Dorzolamide-Timolol (Dorzolamide Hcl/Timolol M) 1 Ml Esther, 1 DROP EACHEYE BID Instill 1 drop into both eyes twice a day. 12/26/23 Metformin HCl (Metformin Hydrochloride) 1,000 Mg Tab, 1000 MG PO BID for DIABETES, TAB 12/25/23 Atorvastatin Calcium (Lipitor) 10 Mg Tab, 1 TAB PO QPM, #90 TAB 1 Refill 12/25/23 Empagliflozin (Jardiance) 25 Mg Tab, 25 MG PO DAILY for DIABETES, TAB 12/25/23 Carvedilol (Coreg) 3.125 Mg Tab, 1 TAB PO BID for HTN 09/05/22 Aspirin (Aspir-Low) 81 Mg Tab, 81 MG PO DAILY 09/03/22 Brimonidine Tartrate (Brimonidine Tartrate) 0.2 % Esther, 1 DROP EACHEYE BID Instill 1 drop into both eyes twice a day as directed. 07/27/21 Information Source: Patient, Emergency Med Personnel Mode of Arrival: EMS Severity: Moderate Timing: Days Duration: Since onset Past Medical History PAST MEDICAL HISTORY: DM, GERD, High Lipids, HTN, [place] Surgical History: BKA, Pacemaker, Tonsillectomy Family History Family History: Reviewed,noncontributory to illness Social History Smoker: Quit Greater Than 1 Year Alcohol: Denies ETOH Use Drugs: Denies Drug Use Lives In: Home Constitutional: denies: chills, diaphoresis, fatigue, fever, malaise, sweats, weakness, others EENTM: denies: blurred vision, double vision, ear bleeding, ear discharge, ear drainage, ear pain, ear ringing, eye pain, eye redness, hearing loss, mouth pain, mouth swelling, nasal discharge, nose bleeding, nose congestion, nose pain, photophobia, tearing, throat pain, throat swelling, voice changes, others Respiratory: denies: cough, hemoptysis, orthopnea, SOB at rest, shortness of breath, SOB with excertion, stridor, wheezing, others Cardiovascular: denies: chest pain, dizzy spells, diaphoresis, Dyspnea on exertion, edema, irregular heart beat, left arm pain, lightheadedness, palpitations, PND, syncope, others Gastrointestinal: denies: abdomen distended, abdominal pain, blood streaked bowels, constipated, diarrhea, dysphagia, difficulty swallowing, hematemesis, melena, nausea, poor appetite, poor fluid intake, rectal bleeding, rectal pain, vomiting, others Genitourinary: denies: burning, dysuria, flank pain, frequency, hematuria, incontinence, penile discharge, penile sore, pain, testicle pain, testicle swelling, urgency, others Neurological: denies: dizziness, fainting, headache, left sided numbness, left sided weakness, numbness, paresthesia, pre-existing deficit, right sided numbness, right sided weakness, seizure, speech problems, tingling, tremors, weakness, others Musculoskeletal: reports: back pain; denies: gout, joint pain, joint swelling, muscle pain, muscle stiffness, neck pain, others Integumetry: denies: bruises, change in color, change in hair/nails, dryness, laceration, lesions, lumps, rash, wounds, others Allergic/Immunocompromised: denies: Difficulty Healing, Frequent Infections, Hives, Itching, others Hematologic/Lymphatic: denies: anemia, blood clots, easy bleeding, easy bruising, swollen glands, others Endocrine: denies: excessive hunger, excessive sweating, excessive thirst, excessive urination, flushing, intolerance to cold, intolerance to heat, unexplained weight gain, unexplained weight loss, others Psychiatric: denies: anxiety, bipolar disorder, depression, hopeless, panic disorder, schizophrenia, sleepless, suicidal, others Physical Exam General Appearance: Moderate Distress HEENT: Normal ENT Inspection, Pharynx Normal, TMs Normal Neck: Full Range of Motion, Non-Tender, Normal, Normal Inspection Respiratory: Chest Non-Tender, Lungs Clear, No Accessory Muscle Use, No Respiratory Distress, Normal Breath Sounds Cardiovascular: No Edema, No JVD, No Murmur, No Gallop, Normal Peripheral Pulses, Regular Rate/Rhythm Breast Exam: Deferred Gastrointestinal: No Organomegaly, Non Tender, No Pulsatile Mass, Normal Bowel Sounds, Soft Genitalia: Deferred Pelvic: Deferred Rectal: Deferred Extremities: Other (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 Was a procedure done?: No Differential Dx Considerations may include: Muscle strain Musculoskeletal pain X-Ray, Labs, Meds, VS Vital Signs Date Time Temp Pulse Resp B/P (MAP) Pulse Ox O2 Delivery O2 Flow Rate FiO2 01/10/25 14:03 98.2 74 20 132/78 (96) 100 98.2 Patient alert. Came in because of back pain. Pain resolved after arrival. Vitals stable. Answering questions. No trauma to cause the pain. He is comfortable. No obvious injury. Reviewed his previous visit. X-ray of the lumbar does show degenerative change. Was given Kevil. Explained to the patient. Was told to follow up with his primary care physician. Was told to come back if there is any problem. Time of 1ST Reevaluation: 13:54 Reevaluation 1ST: Improved Patient Education/Counseling: Diagnosis, Treatment, Prognosis, Need For Follow Up Family Education/Counseling: No Family Present SEPSIS Sepsis Screen Physician Orders Lumbar Spine 3 View (01/10/25 13:50) Hydrocodone-Acet 10/325mg Tab (Kevil 10/ (01/10/25 16:45) Vital Signs Date Time Temp Pulse Resp B/P (MAP) Pulse Ox O2 Delivery O2 Flow Rate FiO2 01/10/25 14:03 98.2 74 20 132/78 (96 100 98.2 Departure 1 Departure Time of Disposition: 13:55 Impression: Primary Impression: Musculoskeletal pain Additional Impressions: Lumbar sprain Qualified Codes: S33.5XXS - Sprain of ligaments of lumbar spine, sequela Degenerative disc disease Qualified Codes: M51.369 - Other intervertebral disc degeneration, lumbar region without mention of lumbar back pain or lower extremity pain Disposition: 01 HOME / SELF CARE / HOMELESS Condition: Good Discharged With: Self Critical Care Note Critical Care Time?: No Stability Stability form required: No Heart Score Heart Score: Heart Score Response (Comments) Value History N/A 0 EKG N/A 0 Age N/A 0 Risk Factors N/A 0 Troponin N/A 0 Total 0 LUCIANO RAMOS MD Jan 10, 2025 13:56
[2025-01-10 14:03] VITALS: BP 132/78; PULSE 74; RESP 20; TEMP 98.2; O2SAT 100
--- NOTE | 2025-01-10 15:06 | DVH ---
EXAM: XY LUMBAR SPINE 3 VIEW HISTORY: fall COMPARISON: None TECHNIQUE: AP and lateral views of the lumbar spine and spot lateral of the lumbosacral junction were performed. FINDINGS: No fractures, scoliosis, or listhesis of the lumbar spine. There is moderate to severe lumbar degene rative disc disease, greatest at L2-L3. There is lower lumbar facet arthropathy. IMPRESSION: Degenerative changes of the lumbar spine without evidence of fracture.
[2025-01-10] MEDS: HYDROcodone-ACET 10/325MG TAB PO ONE (16:43)
== END 2025-01-10 16:49 | disposition home or self-care (01) ==
LOC: EDBD 13:38 → ER 13:44
DX: S33.5XXA Sprain of ligaments of lumbar spine, initial encounter (principal); M79.18 Myalgia, other site; E11.9 Type 2 diabetes mellitus without complications; I10 Essential (primary) hypertension; Z95.0 Presence of cardiac pacemaker; Z90.89 Acquired absence of other organs; Z79.899 Other long term (current) drug therapy; W06.XXXA Fall from bed, initial encounter; Y93.89 Activity, other specified; Y92.89 Other specified places as the place of occurrence of the external cause; Y99.8 Other external cause status
CPT/HCPCS: 72100